=== PATIENT | male | born 1970 | race Caucasian/White ===

== ENCOUNTER 2016-06-22 11:15 | Emergency (ER) | payer BC, MEDICAID, OTHER ==
[~2016-06-22 11:15] MED LIST: ALBU17IN INH; ALBU83IN INH; CYCL5TA PO; KEFL500C OR; LEVA12INH INH; LORTAB PO; MORP10EL PO; MORP15TASA PO; MORP1SOL3 PO; MULTIVIT PO; PROT1TAB2 PO; TOPA25TA10 PO; TRAM50TA2 PO; TYLE500T78 PO; ZANA4TAB PO; ZIPS25CA3 PO; ZOFR20TA PO; [UNRECOGNIZED DRUG - OTHER] PO
--- NOTE | 2016-06-22 12:53 | EDDOCDS ---
Physician Documentation [facility] Name: Galo Reinoso Age: 45 yrs Sex: Male : 1970 Arrival Date: 06/22/2016 Time: 11:15 Bed TR7 Private MD: Zi Sun Disposition: 06/22/16 11:56 Discharged to Home/Self Care. Impression: Strain of muscle and tendon of back wall of thorax, Strain of muscle(s) and tendon(s) of the rotator cuff of left shoulder. - Condition is Stable. - Discharge Instructions: Muscle Strain. - Prescriptions for Valium 5 mg Oral Tablet - take 1 tablet by ORAL route every 8 hours As needed MDD: 3 tabs; 20 tablet. - Medication Reconciliation form. - Follow up: Zi Sun; When: Call to arrange an appointment; Reason: Wound/Symptom Recheck, Recheck today's complaints, Worsening of conditions, Continuance of care. - Problem is an acute exacerbation. - Symptoms are unchanged. Historical: - Allergies: Aminophylline (Anaphylaxis); - Home Meds: 1. albuterol sulfate 90 mcg/actuation Inhl HFAA 2 puffs as needed as needed 2. Xopenex 1.25 mg/3 mL Inhl nebu 3 mL as needed as needed 3. Tylenol 3000mg per day Oral 2 tabs every 6 hours (Last dose: 06/22/2016 08:00) 4. butrans 15 mcg/hr on weekly - PMHx: Asthma; Chronic Back pain; Chronic Neck Pain; GERD; - PSHx: back surgery times 23; Knee Arthroplasty, Left; Knee Arthroplasty, Right; Hip Arthroplasty, Left; Hip Arthroplasty, Right; ACDFI; Carpal Tunnel Repair- Bilateral; CUBITAL TUNNEL REPAIR, BILATERALLY; - Social history: No barriers to communication noted, The patient speaks fluent Azeri, Smoking status: Patient states was never smoker of tobacco. - Family history: Not pertinent. - : The pt / caregiver states he / she is not on anticoagulants. Home medication list is obtained from the patient. - Exposure Risk Screening:: None identified. Vital Signs: 06/22 11:17 BP 132 / 71; Pulse 78; Resp 18; Temp 96.9(O); Pulse Ox 97% on R/A; Weight 117.93 kg / ct3 259.99 lbs (R); Height 5 ft. 6 in. (167.64 cm) (R); Pain 12/16; 11:17 Body Mass Index 41.96 (117.93 kg, 167.64 cm) ct3 MDM: 11:59 Financial registration complete. 12: [facility] Payment Agreement was scanned into [employer] and attached to record. Signatures: Che Lara, Vivek Doyle Patricia MarinelliRN RN kr3 Ricarda Delarosa RN RN gail Zeus Galeana, PA-C PA-C cc10 The chart was reviewed and I authenticate all verbal orders and agree with the evaluation and treatment provided.Corrections: (The following items were deleted from the chart) 11:19 Home Meds: tramadol 50 mg Oral tab as needed; kr3 kr3 11:19 Home Meds: Tylenol 3000mg per day Oral 2 tabs every 6 hours; kr3 kr3 11:19 Home Meds: Zipsor 25 mg oral cap 1 cap three times a day; kr3 kr3 Attachments: 12:22 [facility] Payment Agreement lg MTDD
--- NOTE | 2016-06-22 12:53 | EDDOCDS ---
Nurse's Notes [facility] Name: Galo Reinoso Age: 45 yrs Sex: Male : 1970 Arrival Date: 06/22/2016 Time: 11:15 Bed TR7 Private MD: Zi Sun Diagnosis: Strain of muscle and tendon of back wall of thorax;Strain of muscle(s) and tendon(s) of the rotator cuff of left shoulder Presentation: 06/22 11:19 Presenting complaint: Patient states: lower back started a spasms Tuesday night when he kr3 went to step up on escalator , left shoulder pain and spasms in lower back. Adult Sepsis Screening: The patient does not have new or worsening altered mentation. Patient's respiratory rate is less than 22. Systolic blood pressure is greater than 100. Patient has a qSOFA score of 0- Negative Sepsis Screen. Suicide/Homicide risk assessment- the patient denies having any suicidal and/or homicidal ideations and does not present with any other emotional, behavioral or mental health complaints. Status: Patient is not a service assistant or dependent. Transition of care: patient was not received from another setting of care. 11:19 Acuity: ZULEMA Level 3 kr3 11:19 Method Of Arrival: Walkin/Carried/Asstd kr3 Triage Assessment: 11:19 General: Appears in no apparent distress. Pain: Location: left shopulder pain 8/10 and kr3 low back 6/10. HIV screening NA for this visit Offered previously. Historical: - Allergies: Aminophylline (Anaphylaxis); - Home Meds: 1. albuterol sulfate 90 mcg/actuation Inhl HFAA 2 puffs as needed as needed 2. Xopenex 1.25 mg/3 mL Inhl nebu 3 mL as needed as needed 3. Tylenol 3000mg per day Oral 2 tabs every 6 hours (Last dose: 06/22/2016 08:00) 4. butrans 15 mcg/hr on weekly - PMHx: Asthma; Chronic Back pain; Chronic Neck Pain; GERD; - PSHx: back surgery times 23; Knee Arthroplasty, Left; Knee Arthroplasty, Right; Hip Arthroplasty, Left; Hip Arthroplasty, Right; ACDFI; Carpal Tunnel Repair- Bilateral; CUBITAL TUNNEL REPAIR, BILATERALLY; - Social history: No barriers to communication noted, The patient speaks fluent Serbian, Smoking status: Patient states was never smoker of tobacco. - Family history: Not pertinent. - : The pt / caregiver states he / she is not on anticoagulants. Home medication list is obtained from the patient. - Exposure Risk Screening:: None identified. Screenin:05 Screening information is obtained from the patient. Fall risk: No risks identified. [facility] Assistance ADL's: requires no assistance with activities of daily living. Abuse/DV Screen: The patient / caregiver reports he/she is: not in a situation that causes fear, pain or injury. Nutritional screening: No deficits noted. Advance Directives: There is no active DNR order. home support is adequate. Assessment: 12:05 General: Appears uncomfortable, Behavior is cooperative. Pain: Location: back and right [facility] arm Pain currently is 8 out of 10 on a pain scale. Respiratory: Airway is patent Respiratory effort is even, unlabored, Respiratory pattern is regular, symmetrical. Musculoskeletal: Range of motion limited in left shoulder. Vital Signs: 11:17 BP 132 / 71; Pulse 78; Resp 18; Temp 96.9(O); Pulse Ox 97% on R/A; Weight 117.93 kg ct3 (R); Height 5 ft. 6 in. (167.64 cm) (R); Pain 8/10; 11:17 Body Mass Index 41.96 (117.93 kg, 167.64 cm) ct3 Vitals: 11:17 Log In Time: June 22, 2016 at 11:15. ct3 ED Course: 11:17 Patient visited by Debbi Allen PCA. ct3 11:17 Zi Sun is Private Physician. ct3 11:17 Patient moved to Waiting ct3 11:18 Patient moved to Pre RCE ct3 11:20 Triage Initiated kr3 11:41 Patient moved to Triage 1 ar3 11:46 Zeus Galeana [facility]-C [facility] cc10 11:46 Oneal Santillan MD is Attending Physician. cc10 11:48 Patient visited by Zeus Galeana PA-C. cc10 11:48 Patient visited by Zeus Galeana PA-C. cc10 11:56 Zi Sun is Referral Physician. cc10 12:05 The patient / caregiver is instructed regarding the plan of care and ED course. [facility] 12:05 No IV's were initiated during this patient's visit. No procedures done that require [facility] assistance. 12:07 Patient moved to 7 ar3 12:22 [facility] Payment Agreement was scanned into [employer] and attached to record. Order Results: There are currently no results for this order. Outcome: 11:56 Discharge ordered by Provider. cc10 12:05 Discharge Assessment: Patient awake, alert and oriented x 3. No cognitive and/or [facility] functional deficits noted. Patient verbalized understanding of disposition instructions. patient administered narcotics - no. The following High Risk Discharge criteria are identified: None. Discharged to home ambulatory. Condition: good Condition: stable Condition: improved. Discharge instructions given to patient. No special radiology studies were completed. Property :Personal belongings accompany Pt. 12:51 Patient left the ED. [facility] Signatures: Che Lara, Vivek Reg Patricia Perry RN RN kr3 Jillian Soares, INSOLE BUFFER INSOLE BUFFER ar3 Debbi Allen, INSOLE BUFFER INSOLE BUFFER ct3 Ricarda Delarosa RN RN [facility] Zeus Galeana, PA-C PA-C cc10 Corrections: (The following items were deleted from the chart) 11:22 11:19 Home Meds: tramadol 50 mg Oral tab as needed; kr3 kr3 11:22 11:19 Home Meds: Tylenol 3000mg per day Oral 2 tabs every 6 hours; kr3 kr3 11:22 11:19 Home Meds: Zipsor 25 mg oral cap 1 cap three times a day; kr3 kr3 MTDD
--- NOTE | 2016-06-24 13:53 | EDDOCDS ---
Physician Documentation [facility] Name: Galo Reinoso Age: 45 yrs Sex: Male : 1970 Arrival Date: 06/22/2016 Time: 11:15 Bed TR7 Private MD: Zi Sun Disposition: 06/22/16 11:56 Discharged to Home/Self Care. Impression: Strain of muscle and tendon of back wall of thorax, Strain of muscle(s) and tendon(s) of the rotator cuff of left shoulder. - Condition is Stable. - Discharge Instructions: Muscle Strain. - Prescriptions for Valium 5 mg Oral Tablet - take 1 tablet by ORAL route every 8 hours As needed MDD: 3 tabs; 20 tablet. - Medication Reconciliation form. - Follow up: Zi Sun; When: Call to arrange an appointment; Reason: Wound/Symptom Recheck, Recheck today's complaints, Worsening of conditions, Continuance of care. - Problem is an acute exacerbation. - Symptoms are unchanged. Historical: - Allergies: Aminophylline (Anaphylaxis); - Home Meds: 1. albuterol sulfate 90 mcg/actuation Inhl HFAA 2 puffs as needed as needed 2. Xopenex 1.25 mg/3 mL Inhl nebu 3 mL as needed as needed 3. Tylenol 3000mg per day Oral 2 tabs every 6 hours (Last dose: 06/22/2016 08:00) 4. butrans 15 mcg/hr on weekly - PMHx: Asthma; Chronic Back pain; Chronic Neck Pain; GERD; - PSHx: back surgery times 23; Knee Arthroplasty, Left; Knee Arthroplasty, Right; Hip Arthroplasty, Left; Hip Arthroplasty, Right; ACDFI; Carpal Tunnel Repair- Bilateral; CUBITAL TUNNEL REPAIR, BILATERALLY; - Social history: No barriers to communication noted, The patient speaks fluent Portuguese, Smoking status: Patient states was never smoker of tobacco. - Family history: Not pertinent. - : The pt / caregiver states he / she is not on anticoagulants. Home medication list is obtained from the patient. - Exposure Risk Screening:: None identified. Vital Signs: 06/22 11:17 BP 132 / 71; Pulse 78; Resp 18; Temp 96.9(O); Pulse Ox 97% on R/A; Weight 117.93 kg / ct3 259.99 lbs (R); Height 5 ft. 6 in. (167.64 cm) (R); Pain 12/16; 11:17 Body Mass Index 41.96 (117.93 kg, 167.64 cm) ct3 MDM: 11:59 Financial registration complete. 12: [facility] Payment Agreement was scanned into MEDHOST and attached to record. 06/23 14: T-Sheet-- Draft Copy was scanned into [employer] and attached to record. gb Signatures: Krista Ortega, Reg Reg gb Che Lara, Reg Reg lg Patricia Marinelli,RN RN kr3 Ricarda Delarosa,RN RN [facility] Zeus Galeana, PADarrelC PADarrelC cc10 The chart was reviewed and I authenticate all verbal orders and agree with the evaluation and treatment provided.Corrections: (The following items were deleted from the chart) 06/22 11:22 11:19 Home Meds: tramadol 50 mg Oral tab as needed; kr3 kr3 11:22 11:19 Home Meds: Tylenol 3000mg per day Oral 2 tabs every 6 hours; kr3 kr3 11: 11:19 Home Meds: Zipsor 25 mg oral cap 1 cap three times a day; kr3 kr3 Attachments: 12:22 [facility] Payment Agreement lg 06/23 14:14 T-Sheet-- Draft Copy gb Chart Complete MTDD
--- NOTE | 2016-06-24 13:53 | EDDOCDS ---
Nurse's Notes [facility] Name: Galo Reinoso Age: 45 yrs Sex: Male : 1970 Arrival Date: 06/22/2016 Time: 11:15 Bed TR7 Private MD: Zi Sun Diagnosis: Strain of muscle and tendon of back wall of thorax;Strain of muscle(s) and tendon(s) of the rotator cuff of left shoulder Presentation: 06/22 11:19 Presenting complaint: Patient states: lower back started a spasms Tuesday night when he kr3 went to step up on escalator , left shoulder pain and spasms in lower back. Adult Sepsis Screening: The patient does not have new or worsening altered mentation. Patient's respiratory rate is less than 22. Systolic blood pressure is greater than 100. Patient has a qSOFA score of 0- Negative Sepsis Screen. Suicide/Homicide risk assessment- the patient denies having any suicidal and/or homicidal ideations and does not present with any other emotional, behavioral or mental health complaints. Status: Patient is not a senior manager creative services or dependent. Transition of care: patient was not received from another setting of care. 11:19 Acuity: ZULEMA Level 3 kr3 11:19 Method Of Arrival: Walkin/Carried/Asstd kr3 Triage Assessment: 11:19 General: Appears in no apparent distress. Pain: Location: left shopulder pain 8/10 and kr3 low back 6/10. HIV screening NA for this visit Offered previously. Historical: - Allergies: Aminophylline (Anaphylaxis); - Home Meds: 1. albuterol sulfate 90 mcg/actuation Inhl HFAA 2 puffs as needed as needed 2. Xopenex 1.25 mg/3 mL Inhl nebu 3 mL as needed as needed 3. Tylenol 3000mg per day Oral 2 tabs every 6 hours (Last dose: 06/22/2016 08:00) 4. butrans 15 mcg/hr on weekly - PMHx: Asthma; Chronic Back pain; Chronic Neck Pain; GERD; - PSHx: back surgery times 23; Knee Arthroplasty, Left; Knee Arthroplasty, Right; Hip Arthroplasty, Left; Hip Arthroplasty, Right; ACDFI; Carpal Tunnel Repair- Bilateral; CUBITAL TUNNEL REPAIR, BILATERALLY; - Social history: No barriers to communication noted, The patient speaks fluent Romansh, Smoking status: Patient states was never smoker of tobacco. - Family history: Not pertinent. - : The pt / caregiver states he / she is not on anticoagulants. Home medication list is obtained from the patient. - Exposure Risk Screening:: None identified. Screenin:05 Screening information is obtained from the patient. Fall risk: No risks identified. [facility] Assistance ADL's: requires no assistance with activities of daily living. Abuse/DV Screen: The patient / caregiver reports he/she is: not in a situation that causes fear, pain or injury. Nutritional screening: No deficits noted. Advance Directives: There is no active DNR order. home support is adequate. Assessment: 12:05 General: Appears uncomfortable, Behavior is cooperative. Pain: Location: back and right [facility] arm Pain currently is 8 out of 10 on a pain scale. Respiratory: Airway is patent Respiratory effort is even, unlabored, Respiratory pattern is regular, symmetrical. Musculoskeletal: Range of motion limited in left shoulder. Vital Signs: 11:17 BP 132 / 71; Pulse 78; Resp 18; Temp 96.9(O); Pulse Ox 97% on R/A; Weight 117.93 kg ct3 (R); Height 5 ft. 6 in. (167.64 cm) (R); Pain 8/10; 11:17 Body Mass Index 41.96 (117.93 kg, 167.64 cm) ct3 Vitals: 11:17 Log In Time: June 22, 2016 at 11:15. ct3 ED Course: 11:17 Patient visited by Debbi Allen PCA. ct3 11:17 Zi Sun is Private Physician. ct3 11:17 Patient moved to Waiting ct3 11:18 Patient moved to Pre RCE ct3 11:20 Triage Initiated kr3 11:41 Patient moved to Triage 1 ar3 11:46 [facility]aleana [facility] cc[facility] 11:46 Oneal Santillan MD is Attending Physician. cc10 11:48 Patient visited by Zeus Galeana PA-C. cc10 11:48 Patient visited by Zeus Galeana PA-C. cc10 11:56 Zi Sun is Referral Physician. cc10 12:05 The patient / caregiver is instructed regarding the plan of care and ED course. [facility] 12:05 No IV's were initiated during this patient's visit. No procedures done that require [facility] assistance. 12:07 Patient moved to TR7 ar3 12:22 [facility] Payment Agreement was scanned into [employer] and attached to record. 06/23 14:14 T-Sheet-- Draft Copy was scanned into panpan and attached to record. gb Order Results: There are currently no results for this order. Outcome: 06/22 11:56 Discharge ordered by Provider. cc10 12:05 Discharge Assessment: Patient awake, alert and oriented x 3. No cognitive and/or [facility] functional deficits noted. Patient verbalized understanding of disposition instructions. patient administered narcotics - no. The following High Risk Discharge criteria are identified: None. Discharged to home ambulatory. Condition: good Condition: stable Condition: improved. Discharge instructions given to patient. No special radiology studies were completed. Property :Personal belongings accompany Pt. 12:51 Patient left the ED. [facility] Signatures: Krista Ortega, Reg Reg gb Che Lara, Reg Reg lg Patricia Marinelli,RN RN kr Jillian Soares, TOOLMAKER HELPER TOOLMAKER HELPER ar3 Debbi Allen, TOOLMAKER HELPER TOOLMAKER HELPER ct3 Ricarda Delarosa RN RN [facility] Zeus Galeana, PA-C PADarrelC cc10 Corrections: (The following items were deleted from the chart) 11:22 11:19 Home Meds: tramadol 50 mg Oral tab as needed; kr3 kr3 11:22 11:19 Home Meds: Tylenol 3000mg per day Oral 2 tabs every 6 hours; kr3 kr3 11:22 11:19 Home Meds: Zipsor 25 mg oral cap 1 cap three times a day; kr3 kr3 Chart Complete MTDD
--- NOTE | 2016-06-24 13:53 | EDDOCDS ---
Physician Documentation [facility] Name: Galo Reinoso Age: 45 yrs Sex: Male : 1970 Arrival Date: 06/22/2016 Time: 11:15 Bed TR7 Private MD: Zi Sun Disposition: 06/22/16 11:56 Discharged to Home/Self Care. Impression: Strain of muscle and tendon of back wall of thorax, Strain of muscle(s) and tendon(s) of the rotator cuff of left shoulder. - Condition is Stable. - Discharge Instructions: Muscle Strain. - Prescriptions for Valium 5 mg Oral Tablet - take 1 tablet by ORAL route every 8 hours As needed MDD: 3 tabs; 20 tablet. - Medication Reconciliation form. - Follow up: Zi Sun; When: Call to arrange an appointment; Reason: Wound/Symptom Recheck, Recheck today's complaints, Worsening of conditions, Continuance of care. - Problem is an acute exacerbation. - Symptoms are unchanged. Historical: - Allergies: Aminophylline (Anaphylaxis); - Home Meds: 1. albuterol sulfate 90 mcg/actuation Inhl HFAA 2 puffs as needed as needed 2. Xopenex 1.25 mg/3 mL Inhl nebu 3 mL as needed as needed 3. Tylenol 3000mg per day Oral 2 tabs every 6 hours (Last dose: 06/22/2016 08:00) 4. butrans 15 mcg/hr on weekly - PMHx: Asthma; Chronic Back pain; Chronic Neck Pain; GERD; - PSHx: back surgery times 23; Knee Arthroplasty, Left; Knee Arthroplasty, Right; Hip Arthroplasty, Left; Hip Arthroplasty, Right; ACDFI; Carpal Tunnel Repair- Bilateral; CUBITAL TUNNEL REPAIR, BILATERALLY; - Social history: No barriers to communication noted, The patient speaks fluent Wolof, Smoking status: Patient states was never smoker of tobacco. - Family history: Not pertinent. - : The pt / caregiver states he / she is not on anticoagulants. Home medication list is obtained from the patient. - Exposure Risk Screening:: None identified. Vital Signs: 06/22 11:17 BP 132 / 71; Pulse 78; Resp 18; Temp 96.9(O); Pulse Ox 97% on R/A; Weight 117.93 kg / ct3 259.99 lbs (R); Height 5 ft. 6 in. (167.64 cm) (R); Pain 12/16; 11:17 Body Mass Index 41.96 (117.93 kg, 167.64 cm) ct3 MDM: 11:59 Financial registration complete. 12: [facility] Payment Agreement was scanned into MEDHOST and attached to record. 06/23 14: T-Sheet-- Draft Copy was scanned into [employer] and attached to record. gb Signatures: Krista Ortega, Reg Reg gb Che Lara, Reg Reg lg Patricia Marinelli,RN RN kr3 Ricarda Delarosa,RN RN [facility] Zeus Galeana, PADarrelC PADarrelC cc10 The chart was reviewed and I authenticate all verbal orders and agree with the evaluation and treatment provided.Corrections: (The following items were deleted from the chart) 06/22 11:22 11:19 Home Meds: tramadol 50 mg Oral tab as needed; kr3 kr3 11:22 11:19 Home Meds: Tylenol 3000mg per day Oral 2 tabs every 6 hours; kr3 kr3 11: 11:19 Home Meds: Zipsor 25 mg oral cap 1 cap three times a day; kr3 kr3 Attachments: 12:22 [facility] Payment Agreement lg 06/23 14:14 T-Sheet-- Draft Copy gb Chart Complete MTDD
== END 2016-06-22 12:51 | disposition home or self-care (01) ==
LOC: M ED 11:15
DX: S39.012A Strain of muscle, fascia and tendon of lower back, initial encounter (principal); M25.512 Pain in left shoulder; X58.XXXA Exposure to other specified factors, initial encounter; Y92.89 Other specified places as the place of occurrence of the external cause; Y93.89 Activity, other specified; Y99.8 Other external cause status; G89.29 Other chronic pain; J45.909 Unspecified asthma, uncomplicated; K21.9 Gastro-esophageal reflux disease without esophagitis; Z79.891 Long term (current) use of opiate analgesic

== ENCOUNTER → 2016-06-25 | Outpatient (CLI) | payer OTHER ==
--- NOTE | 2016-06-25 13:12 | REP ---
Clinical: Left shoulder pain. Technique: Internal rotation, external rotation, and Y view. Findings: Subtle cortical irregularity and widening to the acromioclavicular joint is appreciated. The glenohumeral joint appears intact. The subacromial space is normal. Impression: Widening and mild degenerative changes involving the acromioclavicular joint. Signed by Sagar Holt MD 06/25/2016 01:03 P
== END ==
LOC: M WUC 12:12
PROVIDERS: ATTEND Nurse Practitioner Family
DX: M19.012 Primary osteoarthritis, left shoulder (principal)

== ENCOUNTER → 2017-01-05 | Outpatient (CLI) | payer MEDICAID, OTHER ==
[~2017-01-05] MED LIST changes: -CYCL5TA PO; +CYCL5TAB PO; -MORP10EL PO; +MORP10SO PO; +TOPA1TAB PO; -TOPA25TA10 PO
--- NOTE | 2017-01-05 21:07 | REP ---
Clinical: Left shoulder pain. Technique: Internal rotation, external rotation, and Y view of the left shoulder. Comparison: A 17 17. Findings: Cortical irregularity and spurring at the distal aspect of the clavicle along with stable acromioclavicular joint widening appears unchanged. The glenohumeral joint appears intact and normal. No periarticular calcifications are appreciated. Subacromial space is normal. Surrounding soft tissues are unremarkable. Impression: Chronic stable changes involving the acromioclavicular joint including cortical irregularity and moderate widening. Signed by Sagar Holt MD 01/05/2017 08:59 P
== END ==
LOC: M RAD 16:18
PROVIDERS: ATTEND Nurse Practitioner Family
DX: M25.512 Pain in left shoulder (principal)

== ENCOUNTER 2017-02-07 20:07 | Emergency (ER) | payer MEDICAID, OTHER ==
[~2017-02-07] VITALS: Ht 167.6 cm; Wt 107.3 kg
--- NOTE | 2017-02-07 22:20 | REPUSA ---
MRI cervical spine without contrast Clinical statement: Pain. Technique: Multiecho multiplanar MRI images of the cervical spine were obtained without administratio n of contrast. Comparison: 02/23/2016. Findings: The cervical vertebral bodies demonstrate surgical fusion anteriorly from C4 through C6, an d posteriorly from C4 through T2. This is stable since the prior study. No fractures or dislocations are demonstrated. Normal heterogeneous bone marrow signal is noted. No osseous tumors are seen. The v isualized portions of the posterior fossa are unremarkable. The cervical cranial junction is intact. The intervertebral disc spaces and heights are well-maintained. The facet joints are intact without e vidence of subluxation. The cervical spinal cord demonstrates normal signal and contour. The surround ing soft tissues are within normal limits. At the cervical vertebral levels, there is no evidence of disc herniation or protrusion. There is no central canal stenosis. The neural foramina are patent bilaterally. Impression: No evidence of central canal stenosis or neural foraminal narrowing. Surgical fusion colin ges are stable and intact. No other acute findings.
[2017-02-07 23:13] VITALS: BP 123/64
[2017-02-07] MEDS ORDERED: NORCO 5/325MG TABLET (BULK FOR ED) PO ONE (23:15)
[2017-02-07] MEDS ORDERED: KETOROLAC 30 MG/ML VIAL (J1885) IV ONE (23:15)
== END 2017-02-07 23:34 | disposition home or self-care (01) ==
LOC: M ED 20:07
DX: M54.12 Radiculopathy, cervical region (principal); J45.909 Unspecified asthma, uncomplicated; G47.30 Sleep apnea, unspecified; F41.9 Anxiety disorder, unspecified; F33.9 Major depressive disorder, recurrent, unspecified; Z88.5 Allergy status to narcotic agent; Z88.8 Allergy status to other drugs, medicaments and biological substances; Z91.040 Latex allergy status; Z98.890 Other specified postprocedural states; Z87.820 Personal history of traumatic brain injury; Z87.442 Personal history of urinary calculi
CPT/HCPCS: 72141; 96374; 96375; 99283; J1885; J3360

== ENCOUNTER 2017-05-04 14:33 | Emergency (ER) | payer OTHER ==
[2017-05-04] MEDS: ONDANSETRON 4MG/2ML VIAL (J2405) IV (17:30)
[2017-05-04 18:17] LABS: BASO % 0.1 % (0.0-1.0); EOS # 0.1 10^3/uL (0.0-0.50); EOS % 0.8 % (0.0-3.0); IMMATURE GRANULOCYTE % 0.3 % (0-0); LYMPH # 1.7 10^3/uL (1.5-4.5); LYMPH % 23.9 % (24.0-44.0); MEAN CORPUSCULAR HEMOGLOBIN 29.7 pg (27.0-33.0); MEAN CORPUSCULAR HGB CONC 33.8 g/dl (32.0-36.5); MEAN CORPUSCULAR VOLUME 87.8 fl (80.0-96.0); MONO # 0.7 10^3/uL (0.0-0.8); NEUTROPHILS # 4.7 10^3/uL (1.8-7.7); NEUTROPHILS % 64.9 % (36.0-66.0); PLATELET COUNT, AUTOMATED 203 10^3/uL (150-450); WHITE BLOOD COUNT 7.3 10^3/uL (4.0-10.0)
[2017-05-04 18:46] LABS: ALBUMIN 3.7 GM/DL (3.2-5.2); ALKALINE PHOSPHATASE 78 U/L (45-117); ALT/SGPT 21 U/L (12-78); ANION GAP 6 MEQ/L (8-16); AST/SGOT 23 U/L (7-37); BLOOD UREA NITROGEN 14 MG/DL (7-18); CALCIUM LEVEL 8.9 MG/DL (8.5-10.1); CARBON DIOXIDE LEVEL 30 MEQ/L (21-32); CHLORIDE LEVEL 102 MEQ/L (98-107); CREATININE FOR GFR 0.97 MG/DL (0.70-1.30); GLOMERULAR FILTRATION RATE > 60.0 (>60); GLUCOSE, FASTING 87 MG/DL (70-105); POTASSIUM SERUM 3.8 MEQ/L (3.5-5.1); SODIUM LEVEL 138 MEQ/L (136-145); TOTAL PROTEIN 7.4 GM/DL (6.4-8.2)
== END 2017-05-04 19:14 | disposition home or self-care (01) ==
LOC: M ED 14:33
DX: R19.7 Diarrhea, unspecified (principal); R11.0 Nausea; R10.9 Unspecified abdominal pain; M54.5 Low back pain; F41.9 Anxiety disorder, unspecified; K76.0 Fatty (change of) liver, not elsewhere classified; N28.81 Hypertrophy of kidney; Z79.899 Other long term (current) drug therapy; Z88.8 Allergy status to other drugs, medicaments and biological substances; Z88.5 Allergy status to narcotic agent; Z91.040 Latex allergy status
CPT/HCPCS: J2405

== ENCOUNTER 2017-06-02 11:16 | Emergency (ER) | payer OTHER ==
[2017-06-02] MEDS: HYDROmorphone HCL 1 MG/ML SYRINGE (J1170) IV ×2 (12:03→14:15)
[2017-06-02] MEDS: ONDANSETRON 4MG/2ML VIAL (J2405) IV (12:03)
[2017-06-02 12:06] LABS: BASO % 0.5 % (0.0-1.0); EOS # 0.1 10^3/uL (0.0-0.50); HEMATOCRIT 44.1 % (42.0-52.0); IMMATURE GRANULOCYTE % 0.2 % (0-0); LYMPH # 1.7 10^3/uL (1.5-4.5); LYMPH % 38.2 % (24.0-44.0); MEAN CORPUSCULAR HEMOGLOBIN 29.2 pg (27.0-33.0); MONO # 0.4 10^3/uL (0.0-0.8); MONO % 8.8 % (0.0-5.0); NEUTROPHILS # 2.1 10^3/uL (1.8-7.7); NEUTROPHILS % 49.3 % (36.0-66.0); PLATELET COUNT, AUTOMATED 191 10^3/uL (150-450); RED BLOOD COUNT 5.13 10^6/uL (4.30-6.10); RED CELL DISTRIBUTION WIDTH 11.9 % (11.5-14.5); WHITE BLOOD COUNT 4.3 10^3/uL (4.0-10.0)
[2017-06-02] MEDS: diazePAM 5 MG TAB PO (12:15)
[2017-06-02 12:37] LABS: ANION GAP 6 MEQ/L (8-16); BLOOD UREA NITROGEN 13 MG/DL (7-18); CALCIUM LEVEL 9.1 MG/DL (8.5-10.1); CARBON DIOXIDE LEVEL 30 MEQ/L (21-32); CHLORIDE LEVEL 105 MEQ/L (98-107); GLOMERULAR FILTRATION RATE > 60.0 (>60); GLUCOSE, FASTING 93 MG/DL (70-100); POTASSIUM SERUM 4.2 MEQ/L (3.5-5.1); SODIUM LEVEL 141 MEQ/L (136-145)
[2017-06-02] MEDS: KETOROLAC 30 MG/ML VIAL (J1885) IV (17:55)
[2017-06-02] MEDS: METHOCARBAMOL 500 MG TAB PO (17:59)
== END 2017-06-02 19:12 | disposition home or self-care (01) ==
LOC: M ED 11:16
DX: M51.17 Intervertebral disc disorders with radiculopathy, lumbosacral region (principal); M79.604 Pain in right leg; M79.605 Pain in left leg; R32 Unspecified urinary incontinence; R20.0 Anesthesia of skin; Z91.81 History of falling; J45.909 Unspecified asthma, uncomplicated; G47.33 Obstructive sleep apnea (adult) (pediatric); K21.9 Gastro-esophageal reflux disease without esophagitis; Z87.442 Personal history of urinary calculi; Z98.1 Arthrodesis status; Z91.040 Latex allergy status; Z88.8 Allergy status to other drugs, medicaments and biological substances; Z79.899 Other long term (current) drug therapy
CPT/HCPCS: J1170

== ENCOUNTER → 2017-07-25 | Outpatient (CLI) | payer OTHER | LOC: M LRY 08:44 | DX: N31.9 Neuromuscular dysfunction of bladder, unspecified (principal) | CPT/HCPCS: 76857 ==

== ENCOUNTER 2017-08-29 08:22 | Emergency (ER) | payer OTHER ==
[2017-08-29] MEDS: TETRACAINE 0.5% OPHTH SOLN 4ML OD (08:45)
[2017-08-29] MEDS: FLUORESCEIN OPHTH 1 MG STRIP OD (08:45)
== END 2017-08-29 09:05 | disposition home or self-care (01) ==
LOC: M ED 08:22
DX: S05.01XA Injury of conjunctiva and corneal abrasion without foreign body, right eye, initial encounter (principal); W22.8XXA Striking against or struck by other objects, initial encounter; Y92.89 Other specified places as the place of occurrence of the external cause; J45.909 Unspecified asthma, uncomplicated; K21.9 Gastro-esophageal reflux disease without esophagitis; F41.9 Anxiety disorder, unspecified; Z88.8 Allergy status to other drugs, medicaments and biological substances; Z88.5 Allergy status to narcotic agent; Z91.040 Latex allergy status
CPT/HCPCS: 99283

== ENCOUNTER → 2018-04-19 | Outpatient (REF) | payer MEDICARE, MEDICAID ==
[~2018-04-19] MED LIST changes: +ERYTOIN8 OD; +MEDR4PAK PO; +ROBA500T PO; +ZANT300T9 PO; -ZOFR20TA PO; +ZOFR4TAB14 PO; +ZOFR4TAB16 PO
[2018-04-21 00:06] LABS: Lyme Disease IgG/IgM Antibodie <0.91 ISR (0.00-0.90); Lyme Disease IgM Ab Quantitati <0.80 index (0.00-0.79)
== END ==
LOC: M LAB REF 12:17
PROVIDERS: ATTEND Nurse Practitioner Family
DX: R53.83 Other fatigue (principal)

== ENCOUNTER 2018-06-10 20:44 | Emergency (ER) | payer MEDICARE, MEDICAID ==
[~2018-06-10] VITALS: Ht 167.6 cm; Wt 118.2 kg
[2018-06-10] MEDS ORDERED: IBUP200C25 PO (20:59)
[2018-06-10] MEDS ORDERED: NORCO, ANEXSIA 5/325MG TABLET (HYDROcodone/ACETAMINOPHEN) PO ONE (23:30)
[2018-06-10] MEDS ORDERED: NAPR-50 PO (23:43)
[2018-06-10] MEDS ORDERED: CYCL10TA PO (23:43)
[2018-06-10 23:54] VITALS: BP 132/68
--- NOTE | 2018-06-11 08:03 | REP ---
Clinical: Fall with left hip pain Technique: Frontal view of the pelvis with neutral and frog lateral views of the left hip. Findings: The patient is noted to be status post bilateral hip replacement. Osseous structures and joint spaces are intact and without acute fracture or dislocation. The surrounding soft tissues are grossly unremarkable. Impression: No acute fracture or dislocation Electronically Signed by Sagar Holt MD 06/11/2018 07:55 A
--- NOTE | 2018-06-11 08:11 | REP ---
Clinical: Trauma. Fall. Technique: AP, lateral, flexion/extension, bilateral oblique, and swimmer's views of the cervical spine. Findings: The patient is noted to be status post fixation and laminectomy. Alignment and lordosis is maintained. Degenerative disc osteophyte at the C3-4 level noted. No acute fracture / compression injury or subluxation identified. C1-C2 articulation and odontoid process appear normal. Neural foramen appear patent. Impression: No acute fracture / compression injury or subluxation. Electronically Signed by Sagar Holt MD 06/11/2018 08:03 A
--- NOTE | 2018-06-11 08:22 | REP ---
Clinical: Trauma. Technique: Cross-table lateral view of the hip (left). Findings: The patient is noted to be status post bilateral hip replacement. There is essentially complete superimposition of the bilateral hip joints which appear intact without evidence for dislocation. Impression: No evidence for dislocation. Electronically Signed by Sagar Holt MD 06/11/2018 08:14 A
== END 2018-06-10 23:59 | disposition home or self-care (01) ==
LOC: M ED 20:44
DX: S16.1XXA Strain of muscle, fascia and tendon at neck level, initial encounter (principal); S76.012A Strain of muscle, fascia and tendon of left hip, initial encounter; T14.8XXA Other injury of unspecified body region, initial encounter; W01.0XXA Fall on same level from slipping, tripping and stumbling without subsequent striking against object, initial encounter; Y92.410 Unspecified street and highway as the place of occurrence of the external cause

== ENCOUNTER 2018-07-03 14:22 | Outpatient (RCR) | payer MEDICARE, MEDICAID ==
[~2018-07-03 14:22] MED LIST changes: +CYCL10TA PO; +IBUP200C25 PO; +NAPR-50 PO
== END 2018-07-06 ==
LOC: M PT 14:22
DX: Z47.89 Encounter for other orthopedic aftercare (principal); M54.16 Radiculopathy, lumbar region

== ENCOUNTER 2018-08-04 10:18 | Emergency (ER) | payer MEDICARE, MEDICAID ==
[~2018-08-04] VITALS: Ht 167.6 cm; Wt 125.9 kg
[~2018-08-04 10:18] MED LIST changes: -NAPR-50 PO; +NAPR-837 PO
[2018-08-04] MEDS ORDERED: NS 1,000 ML IV ONE (11:30)
[2018-08-04 12:09] LABS: BASO % 0.3 % (0.0-1.0); EOS # 0.2 10^3/uL (0.0-0.50); EOS % 3.8 % (0.0-3.0); HEMATOCRIT 45.2 % (42.0-52.0); HEMOGLOBIN 15.4 g/dl (13.5-17.5); LYMPH # 2.2 10^3/uL (1.5-4.5); LYMPH % 38.1 % (24.0-44.0); MEAN CORPUSCULAR HEMOGLOBIN 29.4 pg (27.0-33.0); MEAN CORPUSCULAR HGB CONC 34.1 g/dl (32.0-36.5); MEAN CORPUSCULAR VOLUME 86.3 fl (80.0-96.0); MONO # 0.5 10^3/uL (0.0-0.8); MONO % 7.8 % (0.0-5.0); NEUTROPHILS # 2.9 10^3/uL (1.8-7.7); NEUTROPHILS % 49.8 % (36.0-66.0); PLATELET COUNT, AUTOMATED 254 10^3/uL (150-450); RED BLOOD COUNT 5.24 10^6/uL (4.30-6.10); WHITE BLOOD COUNT 5.8 10^3/uL (4.0-10.0)
--- NOTE | 2018-08-04 12:29 | REP ---
CHEST, TWO VIEWS: Two views of the chest are performed and compared to multiple prior exams dating back to 09/09/2014. There is no acute infiltrate or pulmonary edema. The heart is not enlarged. Mediastinal silhouette is unchanged. Multiple metallic screws and plates are seen in the cervical spine region. There are mild degenerative changes of the spine. IMPRESSION: No acute pulmonary disease. Electronically Signed by Taiwo Butterfield MD 08/04/2018 03:36 P
[2018-08-04 12:44] LABS: ALBUMIN 4.1 GM/DL (3.2-5.2); ALT/SGPT 24 U/L (12-78); AMYLASE 39 U/L (25-115); BILIRUBIN,DIRECT < 0.1 MG/DL (0.0-0.2); BILIRUBIN,TOTAL 0.5 MG/DL (0.2-1.0); BLOOD UREA NITROGEN 11 MG/DL (7-18); CALCIUM LEVEL 9.4 MG/DL (8.5-10.1); CARBON DIOXIDE LEVEL 29 MEQ/L (21-32); CHLORIDE LEVEL 105 MEQ/L (98-107); CPK CREATINE PHOSPHOKINASE 65 U/L (39-308); GLOMERULAR FILTRATION RATE > 60.0 (>60); GLUCOSE, FASTING 94 MG/DL (70-100); LIPASE 118 U/L (73-393); MB/CK RELATIVE INDEX 2.77 (< OR =4); NT-PRO BNP 21 PG/ML (<125); POTASSIUM SERUM 4.5 MEQ/L (3.5-5.1); SODIUM LEVEL 141 MEQ/L (136-145); TOTAL PROTEIN 7.4 GM/DL (6.4-8.2); TROPONIN I < 0.02 NG/ML (< 0.10)
[2018-08-04] MEDS ORDERED: ISOVUE-370 76% 125ML VIAL (Q9967 PER ML) As Ordered ONE (12:52)
--- NOTE | 2018-08-04 14:07 | REP ---
CT ABDOMEN AND PELVIS WITH IV BUT WITHOUT ORAL CONTRAST: HISTORY: Abdominal distension. Pain. Drainage from the umbilicus. Comparison CT study is from January 02, 2012. 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 Bowel gas pattern is normal. The lung bases are free of infiltrate. There is a granulomatous 4 mm nodule in the right lower lobe which is visible on 2012 prior study and unchanged. Lung bases are otherwise clear. The liver and the spleen are normal in size, homogeneous in texture. The gallbladder is unremarkable. There is a very small sliding-type hiatal hernia. No adrenal lesion is seen. No pancreatic mass or cyst is seen. Kidneys enhance symmetrically and are morphologically intact. Small and large intestinal bowel loops are normal in the abdomen and pelvis. No obstructive lesion is seen. A normal appendix is noted. There is spray artifact across the pelvis from the hip prosthetic components interfering with visualization of the lower pelvic structures. There are dystrophic calcifications visible in the prostate. The patient is status post lumbosacral spine fusion dorsally. No other significant bony abnormality is seen. No umbilical or periumbilical lesion is appreciated. A tiny umbilical hernia transmitting abdominal fat is seen. IMPRESSION: No acute abdominal or pelvic abnormality. Tiny umbilical hernia. Electronically Signed by Higinio Roe MD 08/04/2018 02:37 P
[2018-08-04] MEDS ORDERED: MUPI2OI TOP (14:14)
[2018-08-04 14:42] VITALS: BP 137/72
--- NOTE | 2018-08-04 19:40 | ECGEPIP ---
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
== END 2018-08-04 14:38 | disposition home or self-care (01) ==
LOC: M ED 10:18
DX: K42.9 Umbilical hernia without obstruction or gangrene (principal); L08.9 Local infection of the skin and subcutaneous tissue, unspecified; R00.1 Bradycardia, unspecified; G43.909 Migraine, unspecified, not intractable, without status migrainosus; R07.9 Chest pain, unspecified; G47.30 Sleep apnea, unspecified; K21.9 Gastro-esophageal reflux disease without esophagitis; F41.9 Anxiety disorder, unspecified; M54.9 Dorsalgia, unspecified; Z87.442 Personal history of urinary calculi; Z87.01 Personal history of pneumonia (recurrent); Z88.8 Allergy status to other drugs, medicaments and biological substances
CPT/HCPCS: 71046; 74177; 80048; 80076; 81001; 82150; 82550; 82553; 83690; 83880; 84484; 85025; 93005; 99284; Q9967

== ENCOUNTER → 2018-09-04 | Outpatient (CLI) | payer MEDICARE, MEDICAID ==
[~2018-09-04] MED LIST changes: +MUPI2OI TOP
--- NOTE | 2018-09-06 09:30 | REP ---
Examination Requested: Upper G.I. Series With KUB Reason For Exam: Abdominal distension Upper GI Air Contrast The procedure was performed by NABIL Chaudhary, under the direct supervision of Dr. Butterfield. The images were reviewed with Dr. Butterfield. The marketing segment manager film shows normal organomegaly or pathological masses. The intestinal gas pattern appears normal. Bilateral hip replacements are visualized. Liquid barium and gas producing crystals were given tissue in the erect position as well as liquid barium in the prone position in order to perform a double contrast upper GI examination. The oral and pharyngeal stages of deglutition were unremarkable. Esophageal transport is efficient and there is no esophagitis, stricture, or mucosal ring noted. There there is no evidence of a hiatal hernia. No gastroesophageal reflux was appreciated throughout the course of the exam. The stomach duron are normally outlined. The rugal folds are smooth and regular. There is no gastritis, neoplasm, ulcer disease noted. The duodenal duron are normally outlined. The mucosal folds are smooth and regular. There is no duodenitis, peptic ulcer disease, or neoplasm noted. The visualized portion of the proximal small bowel appears normal in course and caliber. The barium column was followed through the small bowel to the level of the terminal ileum. Small bowel transit time was approximately 120 minutes. During fluoroscopy, gentle palpation shows all loops are freely mobile and pliable. There are no fixed dilated loops. The small bowel mucosal pattern is normal in course and caliber. There is no transition to suggest a partial small-bowel obstruction. Spot filming of the terminal ileum shows it to be unremarkable. Impression; 1. Unremarkable upper GI with small bowel follow-through. 2.9 minutes of fluoroscopy time was utilized for this procedure. Reviewed by NABIL Bradford 09/05/2018 09:38 A Electronically Signed by Taiwo Butterfield MD 09/06/2018 09:22 A
== END ==
LOC: M RAD 08:36
PROVIDERS: ATTEND Surgery
DX: R14.0 Abdominal distension (gaseous) (principal); Z96.643 Presence of artificial hip joint, bilateral

== ENCOUNTER → 2018-11-14 | Outpatient (REF) | payer MEDICARE, MEDICAID ==
[2018-11-14 13:31] LABS: AMORPHOUS SEDIMENT SMALL (NEGATIVE); BACTERIA, URINE AUTO NEGATIVE (NEGATIVE); MUCUS, URINE SMALL (NEGATIVE); RBC, URINE AUTO 0 /HPF (0-3); SQUAMOUS EPITHELIAL CELL UR AU 0 /HPF (0-6); WBC, URINE AUTO 0 /HPF (0-3)
== END ==
LOC: M LAB REF 12:32
PROVIDERS: ATTEND Nurse Practitioner Adult Health
DX: R31.9 Hematuria, unspecified (principal)

== ENCOUNTER 2018-12-05 16:17 | Emergency (ER) | payer MEDICARE, MEDICAID ==
[~2018-12-05] VITALS: Ht 167.6 cm; Wt 120.0 kg
[2018-12-05 18:07] LABS: HEMATOCRIT 46.2 % (42.0-52.0); HEMOGLOBIN 15.2 g/dl (13.5-17.5); MEAN CORPUSCULAR HEMOGLOBIN 29.4 pg (27.0-33.0); MEAN CORPUSCULAR HGB CONC 32.9 g/dl (32.0-36.5); MEAN CORPUSCULAR VOLUME 89.4 fl (80.0-96.0); PLATELET COUNT, AUTOMATED 230 10^3/uL (150-450); RED BLOOD COUNT 5.17 10^6/uL (4.30-6.10); WHITE BLOOD COUNT 5.8 10^3/uL (4.0-10.0)
[2018-12-05 18:29] LABS: BLOOD UREA NITROGEN 13 MG/DL (7-18); CALCIUM LEVEL 9.3 MG/DL (8.5-10.1); CARBON DIOXIDE LEVEL 31 MEQ/L (21-32); CHLORIDE LEVEL 105 MEQ/L (98-107); CREATININE FOR GFR 0.85 MG/DL (0.70-1.30); GLOMERULAR FILTRATION RATE > 60.0 (>60); GLUCOSE, FASTING 91 MG/DL (70-100); POTASSIUM SERUM 4.1 MEQ/L (3.5-5.1); SODIUM LEVEL 140 MEQ/L (136-145)
[2018-12-05] MEDS ORDERED: ISOVUE-370 76% 100ML VIAL (Q9967) As Ordered ONE (19:08)
[2018-12-05 20:12] VITALS: BP 130/82
--- NOTE | 2018-12-05 20:25 | REPVR ---
EXAM: US Duplex Right Lower Extremity Veins, Limited EXAM DATE/TIME: 12/05/2018 7:33 PM CLINICAL HISTORY: 48 years old, male; Pain; Leg, lower; Right; Prior surgery; Surgery date: 6+ months; Surgery type: Hip replacement; Additional info: Leg swelling TECHNIQUE: Imaging protocol: Real-time Duplex ultrasound of the Right Lower Extremity with 2-D weathers scale, color Doppler flow and spectral waveform analysis with image documentation. Limited exam was focused on the right lower extremity veins. COMPARISON: No relevant prior studies available. FINDINGS: Right deep veins: Unremarkable. The common femoral, femoral, proximal profunda femoral and popliteal veins are patent without thrombus. Normal Doppler waveforms. Normal compressibility and/or augmentation response. Right superficial veins: Unremarkable. Saphenofemoral junction is patent without thrombus. Soft tissues: Unremarkable. IMPRESSION: No acute findings. No evidence of deep vein thrombosis. Electronically signed by: Kathleen Hernandez On 12/05/2018 20:25:24 PM
--- NOTE | 2018-12-05 20:43 | REPVR ---
EXAM: CT Angiography Chest With Contrast EXAM DATE/TIME: 12/05/2018 7:12 PM CLINICAL HISTORY: 48 years old, male; Chest pain; Additional info: Shortness of breath, rule out pe TECHNIQUE: Imaging protocol: Axial computed tomographic angiography images of the chest with intravenous contrast using CT angiography protocol. Coronal and sagittal reformatted images were created and reviewed. 3D rendering: MIP reconstructed images were created and reviewed. Radiation optimization: All CT scans at this facility use at least one of these dose optimization techniques: automated exposure control; mA and/or kV adjustment per patient size (includes targeted exams where dose is matched to clinical indication); or iterative reconstruction. Contrast material: ISOVUE 370;Contrast volume: 75 ml;Contrast route: IV; COMPARISON: CT ANGIO CHEST 07/30/2015 11:35 AM FINDINGS: Pulmonary arteries: Normal. No pulmonary emboli. Aorta: Unremarkable. No aortic aneurysm. No aortic dissection. Lungs: Unremarkable. No consolidation. No masses. Pleural space: Unremarkable. No pneumothorax. No pleural effusion. Heart: Unremarkable. No cardiomegaly. No pericardial effusion. Mediastinum: A 1.8 x 0.9 cm lobulated soft tissue lesion in the anterior mediastinum is unchanged. This is likely a lymph node. Lymph nodes: Unremarkable. No enlarged lymph nodes. Bones/joints: There is multilevel thoracic disc space narrowing and endplate osteophytosis. Soft tissues: Unremarkable. IMPRESSION: No acute findings. No evidence of pulmonary embolism. Electronically signed by: Kathleen Hernandez On 12/05/2018 20:43:20 PM
== END 2018-12-05 21:00 | disposition home or self-care (01) ==
LOC: M ED 16:17
DX: M54.16 Radiculopathy, lumbar region (principal); R20.2 Paresthesia of skin; M50.80 Other cervical disc disorders, unspecified cervical region; R06.02 Shortness of breath; F41.9 Anxiety disorder, unspecified; F32.9 Major depressive disorder, single episode, unspecified; J98.59 Other diseases of mediastinum, not elsewhere classified; G43.909 Migraine, unspecified, not intractable, without status migrainosus; Z98.1 Arthrodesis status; Z88.8 Allergy status to other drugs, medicaments and biological substances; Z88.5 Allergy status to narcotic agent
CPT/HCPCS: 71275; 80048; 85027; 85379; 93971; 99284; Q9967

== ENCOUNTER → 2019-01-10 | Outpatient (CLI) | payer MEDICAID, MEDICARE ==
[~2019-01-10] MED LIST changes: +ACET-861 PO; +IBUP-1114 PO; +PANT40TA3 PO; +PROHANCE 279.3MG/ML 15ML VIAL (A9576) As Ordered ONE; +PROHANCE 279.3MG/ML 5ML VIAL (A9576) As Ordered ONE; +SULF1TAB93 PO
--- NOTE | 2019-01-10 17:11 | REP ---
MRI lumbar spine without and with contrast: History: Post lumbar laminectomy syndrome. Comparison lumbar spine MRI study is from June 02, 2017. Technique: Sagittal and axial T1 and T2-weighted scans are acquired in the usual fashion with and without fat saturation. Sequences include spin echo, turbo spin-echo, and STIR imaging sequences. Gadolinium enhancement dose is 20 ml of intravenous ProHance. MRI findings: Lumbar vertebral body heights are preserved. The patient is status post L5-S1 posterior element and facet joint fusion bilaterally. There is no evidence of focal disc protrusion at L5-S1. No neural foraminal narrowing is seen. No central canal stenosis is seen. There is mild central disc bulging. At L4-5, there is mild diffuse disc bulging. Facet hypertrophy and ligamentum flavum hypertrophy are noted bilaterally. No change from comparison study. At L3-4, there is mild ligamentum flavum hypertrophy. No neural foraminal narrowing or central canal stenosis is seen. At L2-3, and L1-2 there is no significant abnormality. Post gadolinium enhanced images demonstrate arthritis associated enhancement within the facet joints at L4-5 bilaterally and at L3-4 right more so than left. Impression: Status post L5-S1 posterior element fusion. 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 Disc bulging at L4-5 and L5-S1. Electronically Signed by Higinio Roe MD 01/11/2019 09:52 A
== END ==
LOC: M RAD 14:26
PROVIDERS: ATTEND Nurse Practitioner Family
DX: M96.1 Postlaminectomy syndrome, not elsewhere classified (principal); M51.26 Other intervertebral disc displacement, lumbar region; Z98.1 Arthrodesis status
CPT/HCPCS: 72158; A9576

== ENCOUNTER → 2019-04-10 | Outpatient (CLI) | payer MEDICARE, MEDICAID ==
[~2019-04-10] MED LIST changes: -ACET-861 PO; -IBUP-1114 PO; -PANT40TA3 PO; -PROHANCE 279.3MG/ML 15ML VIAL (A9576) As Ordered ONE; -PROHANCE 279.3MG/ML 5ML VIAL (A9576) As Ordered ONE; -SULF1TAB93 PO
--- NOTE | 2019-04-10 12:36 | REP ---
MRI thoracic spine: 04/10/2019. Indication: Thoracic pain. Comparison: 06/02/2017. Technique: Multiplanar short and long TR sequences of the thoracic spine were performed without IV Gadolinium. Findings: Thoracic vertebral body alignment is anatomic. No worrisome marrow signal is present. The visualized cord is normal. Anterior spurring is noted most pronounced at T10/T11. There are no focal disc herniations. There is no significant spinal canal or neural foraminal narrowing. Postoperative sequelae of the cervical thoracic junction renders evaluation this area of somewhat suboptimal secondary to surgical hardware associated susceptibility artifact. Impression: No focal disc herniations or areas of significant spinal canal / neural foraminal narrowing. Electronically Signed by Morgan Major DO 04/10/2019 12:27 P
== END ==
LOC: M RAD 10:59
PROVIDERS: ATTEND Orthopaedic Surgery
DX: Z01.818 Encounter for other preprocedural examination (principal); M96.1 Postlaminectomy syndrome, not elsewhere classified

== ENCOUNTER 2019-06-01 06:11 | Day surgery (SDC) | payer MEDICARE, MEDICAID ==
[2019-06-01] VITALS (8 sets, daily range): BP systolic 112–146; BP diastolic 83–95
[~2019-06-01] VITALS: Ht 167.6 cm; Wt 122.0 kg
[~2019-06-01 06:11] MED LIST changes: +ACET-861 PO; +IBUP-1114 PO; +LR 1,000 ML IV ONE; +PANT40TA3 PO; +SULF1TAB93 PO; +ceFAZolin SOD 1 GM in D5W MINI-BAG PLUS 50 ML IV ONE
[2019-06-01] MEDS ORDERED: MIDAZOLAM INJ 2 MG/2 ML VIAL (J2250) As Ordered ONE (07:15)
[2019-06-01] MEDS ORDERED: fentaNYL 250 MCG/5 ML INJECTION (J3010) As Ordered ONE (07:15)
[2019-06-01] MEDS ORDERED: propofoL 200 MG/20 ML VIAL As Ordered ONE ×2 (07:17→09:15)
[2019-06-01] MEDS ORDERED: LIDOCAINE 2% INJ 100 MG/5 ML SDV (FOR ANES.) As Ordered ONE (07:17)
[2019-06-01] MEDS ORDERED: dexameTHASONE 4 MG/ML 1ML VIAL (J1100) As Ordered ONE (07:17)
[2019-06-01] MEDS ORDERED: ONDANSETRON 4MG/2ML VIAL (J2405) As Ordered ONE (07:17)
[2019-06-01] MEDS ORDERED: ROCURONIUM BROMIDE 50 MG/5 ML VIAL As Ordered ONE ×2 (07:17→08:36)
[2019-06-01] MEDS ORDERED: BUPIVACAINE HCL 0.25% 10 ML VIAL As Ordered ONE (07:19)
[2019-06-01] MEDS ORDERED: BUPIVACAINE LIPOSOME/PF 1.3% 20ML VIAL (13.3MG/ML)(EXPAREL)(C9290 PER1MG) As Ordered ONE (07:19)
[2019-06-01] MEDS ORDERED: SUGAMMADEX SODIUM 500 MG/5 ML VIAL (BRIDION) As Ordered ONE (08:00)
[2019-06-01] MEDS: BUPIVACAINE/EPIN 0.25% 30 ML VIAL As Ordered ONE (08:19)
[2019-06-01] MEDS ORDERED: SUCCINYLCHOLINE 100 MG/5 ML SYRINGE (J0330) As Ordered ONE (08:35)
[2019-06-01] MEDS ORDERED: PHENYLephrine HCL 500 MCG/5 ML (100MCG/ML) SYRINGE (J2370) As Ordered ONE (08:36)
[2019-06-01] MEDS ORDERED: ePHEDrine SULFATE 25 MG/5 ML(5MG/ML) SYRINGE As Ordered ONE (08:36)
[2019-06-01] MEDS ORDERED: ACETAMINOPHEN 1000MG 100ML IV BTL (OFIRMEV) (J0131 PER 10MG) As Ordered ONE (08:46)
[2019-06-01] MEDS ORDERED: HYDROmorphone HCL 2 MG/ML 1ML VIAL (J1170) As Ordered ONE (08:59)
[2019-06-01] MEDS ORDERED: KETOROLAC 60 MG/2 ML VIAL (J1885) As Ordered ONE (09:17)
[2019-06-01] MEDS ORDERED: fentaNYL 100 MCG/2 ML INJECTION (J3010) IV PRN (10:30)
[2019-06-01] MEDS ORDERED: ONDANSETRON 4MG/2ML VIAL (J2405) IV PRN (10:30)
[2019-06-01] MEDS ORDERED: METOCLOPRAMIDE INJ 10MG/2ML VIAL (J2765) IV PRN (10:30)
[2019-06-01] MEDS ORDERED: PERCOCET 5MG/325MG TAB PO PRN (10:30)
[2019-06-01] MEDS ORDERED: MORPHINE 2 MG/ML 1ML VIAL (J2270) IV PRN ×3 (10:30→13:30)
[2019-06-01] MEDS ORDERED: LR 1,000 ML IV SCH (10:30)
--- NOTE | 2019-06-01 11:02 | RO ---
DATE OF PROCEDURE: 06/01/2019 PREOPERATIVE DIAGNOSIS: Incarcerated umbilical hernia. POSTOPERATIVE DIAGNOSIS: Incarcerated umbilical hernia. PROCEDURE: Robotic-assisted laparoscopic umbilical hernia repair (incarcerated). SURGEON: Dr. Beto Ferreira HEARING AID SPECIALIST: Kendy Palmer (Provided instrument exchange, trocar placement and abdominal wall closure). ESTIMATED BLOOD LOSS: Minimal. FLUIDS: Crystalloid. DISPOSITION: The patient was extubated and brought to the recovery room awake, alert and hemodynamically stable. BRIEF OPERATIVE SUMMARY: The patient was taken to the operating room and was given general anesthesia. After adequate anesthesia and preoperative antibiotics were given, the patient was prepped and draped in the usual sterile fashion. Next, a left upper quadrant incision was made with skin knife. Blunt dissection was carried down to subcutaneous fat and down to fascia. Veress needle placed into the abdominal cavity, insufflated to 15 mm of pressure. A dilating 8 mm trocar was placed and an epigastric trocar was placed and the falciform ligament was taken down with monopolar cut scissors and cautery was used in this area as well. Once the falciform was taken down, then I was able to feel that we could do a second port on the left upper quadrant and the right upper quadrant to provide top down approach to the peritoneum that was present. Otherwise, the peritoneum was quite thinned out laterally, but in any case, we were able to incise the preperitoneal fat in the midline and mobilize this all the way down to the umbilicus. The umbilicus had some omentum in it that was adequately reduced quite easily well upon insufflation and I was able to reduce this manually. In any case, the peritoneal flap was created using electrocautery and blunt dissection. Eventually this was mobilized down to the level of the hernia sac which was mobilized. There was a small rent in the hernia sac made, but otherwise this continued to be mobilized inferior to the umbilicus for several centimeters. Once this was mobilized quite nicely, the lateral aspects were dissected down as well. I could get about 4 cm lateral to the umbilicus after closure of the midline. In any case, the midline/umbilical defect was closed with a #0 Stratafix in a running manner and then ProGrip was placed in this preperitoneal space and brought up, cut to the appropriate size, and then placed in without difficulty. The lay of the mesh looked quite nice and the peritoneum was closed with #3-0 V-Loc. The defect at the umbilicus was closed with that running V-Loc suture. Next, Exparel was placed circumferentially around the umbilicus in the preperitoneal area similar to a tap block and the Exparel was also used at the subcostal incision sites. The incisions were closed with #4-0 Vicryl after all trocars were removed under direct visualization. Steri-Strips and a dry sterile dressing was applied. The patient was awakened, extubated and brought to the recovery room awake, alert and hemodynamically stable. Sponge and needle counts were correct times two.
[2019-06-01] MEDS ORDERED: NS 1,000 ML IV SCH ×2 (11:30→17:08)
[2019-06-01] MEDS ORDERED: NORCO, ANEXSIA 5/325MG TABLET (HYDROcodone/ACETAMINOPHEN) PO PRN ×3 (11:30→13:30)
[2019-06-01] MEDS: MORPHINE 4 MG/ML 1ML VIAL/SYRINGE (J2270) IV PRN ×2 (13:15→14:05)
[2019-06-01] MEDS ORDERED: MORPHINE 4 MG/ML 1ML VIAL/SYRINGE (J2270) As Ordered ONE (13:22)
[2019-06-01] MEDS ORDERED: KETOROLAC 30 MG/ML VIAL (J1885) IV PRN (16:00)
[2019-06-01] MEDS: NS 1,000 ML IV SCH ×2 (16:30→23:28)
[2019-06-01] MEDS: KETOROLAC 30 MG/ML VIAL (J1885) IV SCH ×2 (16:31→23:29)
[2019-06-01] MEDS ORDERED: diphenhydrAMINE INJ 50MG/ML VIAL (J1200) IV PRN (17:15)
[2019-06-01] MEDS ORDERED: NALBUPHINE HCL 10 MG/ML AMP (J2300) IV PRN (17:15)
[2019-06-01] MEDS ORDERED: MORPHINE 1MG/ML IN 0.9% NACL 100ML IV BAG IV PRN (17:15)
[2019-06-01] MEDS ORDERED: EPIDURAL/PCA KEYS XX PRN (17:15)
[2019-06-01] MEDS ORDERED: NALOXONE INJ 0.4 MG/1 ML VIAL (J2310) IV PRN (17:15)
[2019-06-01] MEDS: ONDANSETRON 4MG/2ML VIAL (J2405) IV PRN ×2 (18:49→23:29)
[2019-06-02] VITALS (7 sets, daily range): BP systolic 100–140; BP diastolic 52–87
[2019-06-02] MEDS ORDERED: PILL CUTTER 1 EACH XX PRN (04:45)
[2019-06-02] MEDS ORDERED: PANTOPRAZOLE 40MG INJ (PROTONIX) (C9113) IV ONE (04:45)
[2019-06-02] MEDS ORDERED: SIMETHICONE 80 MG CHEW TAB PO ONE (04:45)
[2019-06-02] MEDS: KETOROLAC 30 MG/ML VIAL (J1885) IV SCH ×4 (04:54→21:40)
[2019-06-02] MEDS: ONDANSETRON 4MG/2ML VIAL (J2405) IV PRN ×2 (05:02→15:53)
[2019-06-02] MEDS: IPRATROPIUM 0.5MG/ALBUTEROL 2.5MG INH SOL UD 3ML (DUONEB)(J7620) NEB PRN ×2 (05:15→14:30)
[2019-06-02] MEDS: NS 1,000 ML IV SCH ×2 (07:51→14:00)
[2019-06-02 07:55] LABS: HEMATOCRIT 39.3 % (42.0-52.0); HEMOGLOBIN 12.5 g/dl (13.5-17.5); MEAN CORPUSCULAR HEMOGLOBIN 29.1 pg (27.0-33.0); MEAN CORPUSCULAR HGB CONC 31.8 g/dl (32.0-36.5); MEAN CORPUSCULAR VOLUME 91.4 fl (80.0-96.0); PLATELET COUNT, AUTOMATED 221 10^3/uL (150-450); WHITE BLOOD COUNT 8.4 10^3/uL (4.0-10.0)
[2019-06-02 08:14] LABS: BLOOD UREA NITROGEN 15 MG/DL (7-18); CALCIUM LEVEL 8.2 MG/DL (8.5-10.1); CARBON DIOXIDE LEVEL 29 MEQ/L (21-32); CHLORIDE LEVEL 106 MEQ/L (98-107); CREATININE FOR GFR 0.94 MG/DL (0.70-1.30); GLOMERULAR FILTRATION RATE > 60.0 (>60); GLUCOSE, FASTING 121 MG/DL (70-100); POTASSIUM SERUM 3.9 MEQ/L (3.5-5.1); SODIUM LEVEL 140 MEQ/L (136-145)
[2019-06-02] MEDS: DOCUSATE SODIUM 100 MG CAP PO SCH ×2 (09:31→21:39)
[2019-06-02] MEDS: SIMETHICONE 80 MG CHEW TAB PO SCH ×4 (09:31→21:39)
--- NOTE | 2019-06-02 10:26 | IPN ---
DATE: 06/02/2019 The patient was admitted after his ventral hernia repair/umbilical hernia repair yesterday. He had a lot of spasm at his abdominal wall and some distension. He was unable to get rid of a lot of the air and because of this, because of pain intolerance he was admitted overnight. The patient does have a history of significant narcotic use for pain issues in the past reportedly and has some sleep apnea issues. We have admitted him for observation overnight with oxygen monitoring. His saturations were coming down with sleeping. He has been taking poor inspiratory effort and somewhat splinting secondary to his abdominal discomfort and pain. Overall he states however, his pain is much better than it was last night, better under control. He is feeling less distended than he did last night. On his physical exam, he is still appears in distress as he did in the perioperative/postoperative recovery room and he continues with slight improvement of his overall appearance, but very slow progress/improvement. He has been afebrile. His lungs are diminished bilaterally with clear aeration superiorly. His heart is regular. His abdomen is distended, but once again quite hard to tell with his morbid obesity. He has had a very firm hard abdomen preoperatively and this is the case postoperatively. Although, he is a little bit softer in the lower abdomen/periumbilical area and he has more firmness around his upper trocar sites. Not seeing any hematoma at the incision sites. His dressings are clean and dry. IMPRESSION/PLAN: The patient has undergone a robotic assisted umbilical hernia repair and has not really tolerated this very well. From his standpoint, pain control is still poor. We will continue him on his patient controlled analgesia (COMMERCIAL REAL ESTATE ATTORNEY) for today. I have encouraged activity. He has walked around the nurses station three times this morning and he has had good urine output. He has minimal flatus at this point. No bowel movements. His white count is within normal limits. Thus, at this point I do feel that we will need to continue him on the COMMERCIAL REAL ESTATE ATTORNEY today. I anticipate his improvement should be significantly better by tomorrow, and if it is, he will probably be changed over to oral meds and discharged to home. From a respiratory standpoint with his activity level, I anticipate that his respiratory function will improve as well. He does have a history of sleep apnea and does not wear his bilevel positive airway pressure (BiPAP)/continuous positive airway pressure (CPAP) machine at home, and thus, I feel with his narcotic use and his mild desaturation that we should watch him with this as well overnight.
[2019-06-02] MEDS: PANTOPRAZOLE 40MG INJ (PROTONIX) (C9113) IV SCH (18:13)
[2019-06-03 02:00] VITALS: BP 116/57
[2019-06-03] MEDS: SIMETHICONE 80 MG CHEW TAB PO SCH ×3 (03:00→09:54)
[2019-06-03] MEDS: KETOROLAC 30 MG/ML VIAL (J1885) IV SCH (03:00)
[2019-06-03] MEDS: PANTOPRAZOLE 40MG INJ (PROTONIX) (C9113) IV SCH ×2 (05:44→06:00)
[2019-06-03 06:00] VITALS: BP 125/64
[2019-06-03] MEDS ORDERED: ONDANSETRON 4 MG TAB (S0181) PO PRN (06:15)
[2019-06-03] MEDS ORDERED: PANTOPRAZOLE 40MG TAB (PROTONIX) PO SCH (09:00)
[2019-06-03] MEDS: DOCUSATE SODIUM 100 MG CAP PO SCH (09:53)
[2019-06-03] MEDS ORDERED: KETOROLAC TROMETHAMINE 10 MG TAB PO SCH (10:00)
== END 2019-06-03 12:30 | disposition home or self-care (01) ==
LOC: M SDC 06:11 → M MSPAV 16:00 → M SDC 06-03 12:30
PROVIDERS: ATTEND Surgery
DX: K42.0 Umbilical hernia with obstruction, without gangrene (principal); G47.30 Sleep apnea, unspecified; R07.9 Chest pain, unspecified; M81.0 Age-related osteoporosis without current pathological fracture; F41.9 Anxiety disorder, unspecified; F32.9 Major depressive disorder, single episode, unspecified; G43.909 Migraine, unspecified, not intractable, without status migrainosus; Z88.8 Allergy status to other drugs, medicaments and biological substances; Z79.899 Other long term (current) drug therapy
CPT/HCPCS: 36415; 49653; 80048; 85027; 94640; 96361; 96374; 96375; 96376; C1781; C9113; C9290; J0131; J0330; J0690; J1100; J1170; J1885; J2250; J2270; J2370; J2405; J3010

== ENCOUNTER 2019-06-06 21:34 | Emergency (ER) | payer MEDICARE, MEDICAID ==
[~2019-06-06] VITALS: Ht 167.6 cm; Wt 129.2 kg
[~2019-06-06 21:34] MED LIST changes: -LR 1,000 ML IV ONE; -ceFAZolin SOD 1 GM in D5W MINI-BAG PLUS 50 ML IV ONE
[2019-06-06] MEDS ORDERED: KETO10TAB (21:51)
[2019-06-06] MEDS ORDERED: NS 1,000 ML IV ONE (22:45)
[2019-06-06] MEDS ORDERED: MORPHINE 4 MG/ML 1ML VIAL/SYRINGE (J2270) IV ONE (22:45)
[2019-06-06] MEDS ORDERED: ONDANSETRON 4MG/2ML VIAL (J2405) IV ONE (22:45)
[2019-06-06] MEDS ORDERED: ISOVUE-370 76% 100ML VIAL (Q9967) As Ordered ONE (23:08)
[2019-06-06 23:11] LABS: BASO % 0.2 % (0.0-1.0); EOS # 0.2 10^3/uL (0.0-0.5); EOS % 3.3 % (0.0-3.0); HEMATOCRIT 42.8 % (42.0-52.0); HEMOGLOBIN 13.8 g/dl (13.5-17.5); LYMPH # 1.9 10^3/uL (1.5-5.0); MEAN CORPUSCULAR HEMOGLOBIN 28.5 pg (27.0-33.0); MEAN CORPUSCULAR HGB CONC 32.2 g/dl (32.0-36.5); MEAN CORPUSCULAR VOLUME 88.2 fl (80.0-96.0); MONO # 0.5 10^3/uL (0.0-0.8); MONO % 7.9 % (0.0-5.0); NEUTROPHILS # 3.2 10^3/uL (1.5-8.5); NEUTROPHILS % 55.4 % (36.0-66.0); PLATELET COUNT, AUTOMATED 236 10^3/uL (150-450); RED BLOOD COUNT 4.85 10^6/uL (4.30-6.10); WHITE BLOOD COUNT 5.8 10^3/uL (4.0-10.0)
[2019-06-06 23:46] LABS: ALBUMIN 3.6 GM/DL (3.2-5.2); BILIRUBIN,DIRECT 0.1 MG/DL (0.0-0.2); BILIRUBIN,TOTAL 0.3 MG/DL (0.2-1.0); TOTAL PROTEIN 6.8 GM/DL (6.4-8.2)
[2019-06-07] MEDS: MORPHINE 4 MG/ML 1ML VIAL/SYRINGE (J2270) IV PRN ×2 (00:08→01:44)
--- NOTE | 2019-06-07 00:36 | REPVR ---
PROCEDURE INFORMATION: Exam: CT Abdomen And Pelvis With Contrast Exam date and time: 06/06/2019 10:31 PM Age: 48 years old Clinical indication: Abdominal pain; Generalized; Prior surgery; Surgery date: 3-7 days post-operative; Surgery type: Lap umb. Hernia; Additional info: Severe abdominal pain; S/P umbilical hernia repair TECHNIQUE: Imaging protocol: Computed tomography of the abdomen and pelvis with intravenous contrast. Radiation optimization: All CT scans at this facility use at least one of these dose optimization techniques: automated exposure control; mA and/or kV adjustment per patient size (includes targeted exams where dose is matched to clinical indication); or iterative reconstruction. Contrast material: ISO; Contrast volume: 100 ml; Contrast route: AC; COMPARISON: CT ABD/PEL W/IV CONTRAST ONLY 05/20/2019 10:45 PM FINDINGS: Tubes, catheters and devices: Spinal stimulator electrode is present with the electrode terminating at T7-8. Liver: Normal. No mass. Gallbladder and bile ducts: Normal. No calcified stones. No ductal dilation. Pancreas: Normal. No ductal dilation. Spleen: Normal. No splenomegaly. Adrenals: Normal. No mass. Kidneys and ureters: Normal. No hydronephrosis. Stomach and bowel: Unremarkable. No obstruction. No mucosal thickening. Appendix: No evidence of appendicitis. Intraperitoneal space: Unremarkable. No free air. No significant fluid collection. Vasculature: Unremarkable. No abdominal aortic aneurysm. Lymph nodes: Unremarkable. No enlarged lymph nodes. Bladder: Unremarkable as visualized. Reproductive: Unremarkable as visualized. Bones/joints: There are degenerative changes in the spine and pelvis. Bilateral hip arthroplasties. Soft tissues: Small amount of subcutaneous gas in the anterior abdominal wall, presumably related to recent surgery. Mild subcutaneous edema. No abscess or other fluid collection. Small fat-containing periumbilical hernia. The hernia is smaller but there is mild edema in the herniated fat. No other hernias. IMPRESSION: 1. Persistent small periumbilical hernia with mild edema in the herniated fat. 2. No new hernia or other acute abnormalities. Electronically signed by: Khurram Maher On 06/07/2019 00:35:37 AM
[2019-06-07] MEDS ORDERED: MORPHINE 10 MG/ML 1ML VIAL (J2270) IV ONE (01:15)
[2019-06-07] MEDS ORDERED: KETOROLAC 30 MG/ML VIAL (J1885) IV ONE (03:00)
[2019-06-07 03:39] VITALS: BP 140/77
== END 2019-06-07 03:51 | disposition home or self-care (01) ==
LOC: M ED 21:34
DX: L76.34 Postprocedural seroma of skin and subcutaneous tissue following other procedure (principal); K21.9 Gastro-esophageal reflux disease without esophagitis; Z98.890 Other specified postprocedural states; Z88.5 Allergy status to narcotic agent; Z88.8 Allergy status to other drugs, medicaments and biological substances
CPT/HCPCS: 74177; 80047; 80076; 83605; 83690; 85025; 93041; 96374; 96375; 96376; 99285; J1885; J2270; J2405; Q9967

== ENCOUNTER → 2020-01-27 | Outpatient (CLI) | payer MEDICARE, MEDICAID ==
[~2020-01-27] MED LIST changes: +CYCL-707 PO; -CYCL10TA PO; +KETO10TAB; -MORP1SOL3 PO; +MORP1SOL4 PO; +PANT40TA29 PO; -PANT40TA3 PO
== END ==
LOC: M LABSMTC 09:35
PROVIDERS: ATTEND Anesthesiology Pain Medicine
DX: Z20.828 Contact with and (suspected) exposure to other viral communicable diseases (principal)
CPT/HCPCS: C9803; U0003

== ENCOUNTER → 2020-02-13 | Outpatient (CLI) | payer MEDICARE, MEDICAID | LOC: M LABSMTC 11:00 | PROVIDERS: ATTEND Anesthesiology Pain Medicine | DX: Z20.828 Contact with and (suspected) exposure to other viral communicable diseases (principal) | CPT/HCPCS: C9803; U0003 ==

== ENCOUNTER → 2020-03-23 | Outpatient (CLI) | payer MEDICARE, MEDICAID | LOC: M LABSMTC 11:04 | PROVIDERS: ATTEND Anesthesiology Pain Medicine | DX: Z01.812 Encounter for preprocedural laboratory examination (principal); Z20.828 Contact with and (suspected) exposure to other viral communicable diseases ==

== ENCOUNTER → 2020-03-26 | Outpatient (CLI) | payer MEDICARE, MEDICAID | LOC: M LABSMTC 12:27 | PROVIDERS: ATTEND Anesthesiology Pain Medicine | DX: Z20.828 Contact with and (suspected) exposure to other viral communicable diseases (principal) ==

== ENCOUNTER 2020-06-04 13:06 | Outpatient (RCR) | payer MEDICARE, MEDICAID | END 2020-06-08 | LOC: M PT 13:06 | PROVIDERS: ATTEND Physician Assistant Surgical | DX: M25.512 Pain in left shoulder (principal); S40.012D Contusion of left shoulder, subsequent encounter; S46.012D Strain of muscle(s) and tendon(s) of the rotator cuff of left shoulder, subsequent encounter ==

== ENCOUNTER → 2020-06-16 | Outpatient (CLI) | payer OTHER, MEDICAID, MEDICARE ==
[2020-06-16 15:51] LABS: HEMATOCRIT 45.2 % (42.0-52.0); HEMOGLOBIN 14.8 g/dl (13.5-17.5); MEAN CORPUSCULAR HEMOGLOBIN 29.1 pg (27.0-33.0); MEAN CORPUSCULAR HGB CONC 32.7 g/dl (32.0-36.5); PLATELET COUNT, AUTOMATED 247 10^3/uL (150-450); RED BLOOD COUNT 5.08 10^6/uL (4.30-6.10); WHITE BLOOD COUNT 8.7 10^3/uL (4.0-10.0)
[2020-06-16 16:11] LABS: INR 1.01; PROTHROMBIN TIME 13.5 SECONDS (12.5-14.3)
[2020-06-16 16:12] LABS: PARTIAL THROMBOPLASTIN TIME 30.2 SECONDS (24.2-38.5)
[2020-06-16 16:16] LABS: BLOOD UREA NITROGEN 21 MG/DL (7-18); CREATININE FOR GFR 1.04 MG/DL (0.70-1.30); GLOMERULAR FILTRATION RATE > 60.0 (>56)
== END ==
LOC: M LAB 15:03
PROVIDERS: ATTEND Orthopaedic Surgery
DX: M54.2 Cervicalgia (principal)

== ENCOUNTER → 2020-06-18 | Outpatient (CLI) | payer OTHER ==
[~2020-06-18] MED LIST changes: +ISOVUE-M 300 61% 15ML VIAL As Ordered ONE; +LIDOCAINE 1% MDV 20ML VIAL As Ordered ONE
--- NOTE | 2020-06-18 09:40 | REP ---
INDICATION: DORASALGIA / CERVICALGIA. Dorsal column stimulator. Status post cervical spine and lumbosacral spine fusion. COMPARISON: Comparison cervical spine radiographs are from April 26, 2017. There is a comparison MRI of the cervical spine from February 07, 2017.. TECHNIQUE: Helical scanning is acquired and overlapping 2 mm high resolution axial images were generated and reviewed at bone and soft tissue window settings. Coronal and sagittal multiplanar re-formations images are generated. Intrathecal contrast was injected prior to scanning. The injection procedure is performed and dictated separately. FINDINGS: Preliminary neuropsychology medical consultant views demonstrate ventral discectomy and fusion hardware in place across C4 through C7 with dorsal fixation hardware and interconnecting rods bilaterally C4 to the 2nd thoracic level. On CT images, cervical vertebral body heights are preserved and alignment is normal. There is fusion complete which appears complete across the C4-5 and C5-6 disc levels. The C6-7 disc appears fused as well. There is good opacification of the thecal sac and cerebral spinal fluid from the craniocervical junction to the upper thoracic level. The cervical cord is normal in course, caliber and contour. No cord compressive lesion is seen. No central canal stenosis is appreciated. No focal cervical disc protrusion is seen. The upper thoracic cord is unremarkable. No neural foraminal impingement or bony stenosis is seen. There are mild osteoarthritic facet changes at C3-4. Craniocervical junction is unremarkable.. IMPRESSION: Extensive ventral and dorsal fusion C4 through T2 as above. Mild degenerative disc and facet changes C3-4. No spinal stenosis or cord compressive lesion. No neural foraminal impingement is appreciated.. <Electronically signed by Jassi Roe > 06/18/20 0941
--- NOTE | 2020-06-18 09:48 | REP ---
INDICATION: DORASALGIA / CERVICALGIA. Dorsal column stimulator. The cervical and lumbosacral spine fusion. COMPARISON: Comparison MRI T-spine study 10 April 2019.. TECHNIQUE: The intrathecal contrast injection procedure is performed and dictated separately. Helical scanning is acquired and 4 mm axial images re-formatted. Coronal and sagittal MPR images are generated. FINDINGS: Preliminary channeler insole images demonstrate dorsal transpedicle screw and interconnecting tashia spine fusion fixation in the T1 and T2 levels bilaterally unchanged. A dorsal column stimulator lead is seen in place in the midthoracic spine on channeler insole images. There is good opacification of the thoracic spine thecal sac. The tip of the conus medullaris is knee is seen at L1 normal in position and appearance. The thoracic cord is normal in course, caliber and position. No cord compressive lesion is seen. The dorsal column stimulator lead terminates in the dorsal aspect of the spinal canal at the T8 level superior endplate. There is moderate degenerative discogenic spurring in the right anterior aspect of the lower thoracic spine. The no thoracic disc protrusion is seen producing thecal sac compression. The cauda equina is unremarkable. No cord compressive lesion is seen. No bony neural foraminal lesion is appreciated.r there is a alex 12 byrr 15 mm lymph node in the anterior mediastinum unchanged from a December 05, [address] study. No other significant soft tissue finding. Intrarenal nephrolithiasis is noted in the upper pole of the left kidney, 3 mm calculus. This is unchanged from [address] study. IMPRESSION: No evidence of thecal sac or cord compression seen. Dorsal column stimulator and cervical spine fusion hardware as above. <Electronically signed by Jassi Roe > 06/18/20 0934
[2020-06-18 10:48] VITALS: BP 132/60
--- NOTE | 2020-06-18 16:31 | REP ---
PROCEDURE NAME: MYELOGRAM, THORACIC CLINICAL INFORMATION: DORASALGIA / CERVICALGIA. PROCEDURE DESCRIPTION: The procedure was performed by Pily Justice [facility], under the direct supervision of Dr. Roe. The risks and benefits of the procedure were explained to the patient and an informed consent was obtained both verbally and written. Directly prior to the start of the procedure a formal time-out was completed in the procedure room. The L3-4 interspace was localized using fluoroscopic guidance. The skin was prepped and draped in a sterile fashion. Five ml 1 % lidocaine 10 milligrams/milliliter was used as a local anesthetic. Using fluoroscopic guidance a 22 gauge spinal needle was inserted and advanced into the thecal sac. Ten mL of Isovue-M 300 was injected. Monitoring fluoroscopic images showed no thecal sac compression. The needle was removed and the patient was taken to CT for postprocedural imaging. 0.5 minutes of fluoroscopy time was utilized for this procedure. Some fluoroscopic images are performed with last image hold technology. These images require no additional radiation. The patient tolerated the procedure well and there were no immediate complications. After the appropriate amount of monitored chondral assist the patient was discharged back to the unit. CONCLUSION: Fluoroscopic guided injection for myelogram. Monitoring fluoroscopic images demonstrate no thecal sac compression. <Electronically signed by Pily Justice > 06/18/20 [id number] <Electronically signed by Jassi Roe > 06/18/20 [id number]
== END ==
LOC: M IRPRO 07:12
PROVIDERS: ATTEND Orthopaedic Surgery
DX: M54.2 Cervicalgia (principal); M54.5 Low back pain
CPT/HCPCS: 62305; 72125; 72128; Q9967

== ENCOUNTER → 2020-10-10 | Outpatient (CLI) | payer MEDICARE, MEDICAID ==
[~2020-10-10] MED LIST changes: +BACTDSTA PO; -ISOVUE-M 300 61% 15ML VIAL As Ordered ONE; -LIDOCAINE 1% MDV 20ML VIAL As Ordered ONE; -SULF1TAB93 PO
[2020-10-10 12:48] LABS: HEMOGLOBIN 14.7 g/dl (13.5-17.5); MEAN CORPUSCULAR HEMOGLOBIN 29.1 pg (27.0-33.0); MEAN CORPUSCULAR HGB CONC 32.7 g/dl (32.0-36.5); MEAN CORPUSCULAR VOLUME 89.1 fl (80.0-96.0); PLATELET COUNT, AUTOMATED 254 10^3/uL (150-450); RED BLOOD COUNT 5.05 10^6/uL (4.30-6.10); WHITE BLOOD COUNT 5.6 10^3/uL (4.0-10.0)
[2020-10-10 13:17] LABS: HEMOGLOBIN A1c 5.4 %
[2020-10-10 13:20] LABS: ALBUMIN 3.9 GM/DL (3.2-5.2); ALT/SGPT 19 U/L (12-78); BILIRUBIN,TOTAL 0.4 MG/DL (0.2-1.0); BLOOD UREA NITROGEN 19 MG/DL (7-18); CALCIUM LEVEL 9.2 MG/DL (8.5-10.1); CARBON DIOXIDE LEVEL 28 MEQ/L (21-32); CHLORIDE LEVEL 107 MEQ/L (98-107); CPK CREATINE PHOSPHOKINASE 54 U/L (39-308); CREATININE FOR GFR 0.93 MG/DL (0.70-1.30); GLOMERULAR FILTRATION RATE > 60.0 (>56); GLUCOSE, FASTING 117 MG/DL (70-100); RHEUMATOID FACTOR QUANT < 10.0 IU/ML (<15.0); SODIUM LEVEL 140 MEQ/L (136-145); TOTAL PROTEIN 7.3 GM/DL (6.4-8.2)
[2020-10-10 13:30] LABS: FOLATE 21.3 NG/ML (>5.4); VITAMIN B12 LEVEL 354 PG/ML (247-911)
[2020-10-14 02:07] LABS: ANGIOTENSIN 1 CONVERTING ENZYM 46 U/L (14-82); ANTINUCLEAR ANTIBODIES DIRECT Negative (Negative); ARSENIC BLOOD 4 ug/L (2-23); CYCLIC CITRULLINATED PEPTIDE 12 units (0-19); LEAD BLOOD <1 ug/dL (0-4); Lyme Disease IgG/IgM Antibodie <0.91 ISR (0.00-0.90); Lyme Disease IgM Ab Quantitati <0.80 index (0.00-0.79); MERCURY BLOOD <1.0 ug/L (0.0-14.9)
== END ==
LOC: M LAB 11:21
PROVIDERS: ATTEND Nurse Practitioner Family
DX: R20.2 Paresthesia of skin (principal); G60.3 Idiopathic progressive neuropathy; Z79.899 Other long term (current) drug therapy

== ENCOUNTER → 2021-01-14 | Outpatient (REF) | payer MEDICARE, MEDICAID ==
[2021-01-14 17:14] LABS: C REACTIVE PROTEIN QUANTITATIV < 0.30 MG/DL (0.00-0.30); RHEUMATOID FACTOR QUANT < 10.0 IU/ML (<15.0); URIC ACID 5.6 MG/DL (3.5-7.2)
== END ==
LOC: M LAB REF 16:26
PROVIDERS: ATTEND Family Medicine
DX: M25.551 Pain in right hip (principal); M25.552 Pain in left hip

== ENCOUNTER → 2021-01-29 | Outpatient (CLI) | payer MEDICARE, MEDICAID ==
--- NOTE | 2021-01-29 17:33 | REP ---
INDICATION: PAIN OF RIGHT HIP NEEDS DISK AND LABS. COMPARISON: CT abdomen pelvis 06/06/2019. TECHNIQUE: Axial CT right hip performed with sagittal and coronal reconstruction images. FINDINGS: Total right hip prosthesis is noted. The femoral component demonstrates no adjacent osseous fracture. There is an area of osteolysis directly adjacent to the metallic prosthesis involving the superior aspect of the greater trochanter. There is no fracture of the acetabulum. However, there is an area of osteolysis along the inferior margin of the prosthetic acetabulum within the ischium. The cortex in this region is intact. There is also a small area of osteolysis along the prosthetic acetabulum at its superolateral aspect. There is a small bone island in the inferior right iliac bone. The metallic femoral head directly contacts the metallic acetabulum. IMPRESSION: Small area of osteolysis in the superior aspect of the greater trochanter. There is another area of osteolysis along the inferior margin of the prosthetic acetabulum. There is also a small area of osteolysis along the prosthetic acetabulum at its superolateral aspect. There is no fracture. The metallic femoral head directly contacts the metallic acetabulum. <Electronically signed by Taiwo Butterfield > 01/29/21 [id number]
== END ==
LOC: M LAB 14:38
PROVIDERS: ATTEND Physician Assistant
DX: M89.551 Osteolysis, right thigh (principal); M25.551 Pain in right hip; T56.2X1A Toxic effect of chromium and its compounds, accidental (unintentional), initial encounter; Z96.641 Presence of right artificial hip joint; Z79.899 Other long term (current) drug therapy; T56.894A Toxic effect of other metals, undetermined, initial encounter

== ENCOUNTER 2021-04-29 11:36 | Outpatient (CLI) | payer MEDICARE, MEDICAID ==
[~2021-04-29] VITALS: Ht 165.1 cm; Wt 120.0 kg
[~2021-04-29 11:36] MED LIST changes: +ALBUTEROL 90 MCG/ACT 8GM HFA INHALER INH PRN; +ALBUTEROL SULFATE 2.5 MG/0.5 ML INH NEB SOLN INH PRN; +EPINEPHrine INJ 1 MG/ML 1ML AMP IM PRN; +NS 1,000 ML IV SCH; +diphenhydrAMINE 50MG/ML VIAL (J1200) IV PRN; +methylPREDNISolone 125MG 2ML VIAL IV PRN
[2021-04-29] MEDS ORDERED: CASIRIVIMAB/IMDEVIMAB 1,200 MG in NS 250 ML IV ONE (12:00)
[2021-04-29 12:16] VITALS: BP 110/61
[2021-04-29 12:46] VITALS: BP 121/73
[2021-04-29 13:16] VITALS: BP 120/59
[2021-04-29 14:16] VITALS: BP 120/61
== END 2021-04-29 14:16 | disposition home or self-care (01) ==
LOC: M OPCLI4PR 11:36
PROVIDERS: ATTEND Physician Assistant Medical
DX: U07.1 COVID-19 (principal); Z88.8 Allergy status to other drugs, medicaments and biological substances

== ENCOUNTER → 2021-06-05 | Outpatient (CLI) | payer MEDICARE, MEDICAID ==
[~2021-06-05] MED LIST changes: -ALBUTEROL 90 MCG/ACT 8GM HFA INHALER INH PRN; -ALBUTEROL SULFATE 2.5 MG/0.5 ML INH NEB SOLN INH PRN; -EPINEPHrine INJ 1 MG/ML 1ML AMP IM PRN; -NS 1,000 ML IV SCH; -diphenhydrAMINE 50MG/ML VIAL (J1200) IV PRN; -methylPREDNISolone 125MG 2ML VIAL IV PRN
[2021-06-10 14:10] LABS: CHROMIUM PLASMA 1.9 ug/L (0.1-2.1)
== END ==
LOC: M RAD 11:12
PROVIDERS: ATTEND Orthopaedic Surgery
DX: M79.661 Pain in right lower leg (principal); M79.89 Other specified soft tissue disorders; Z96.649 Presence of unspecified artificial hip joint

== ENCOUNTER → 2021-08-07 | Outpatient (REF) | payer MEDICARE, MEDICAID ==
[2021-08-07 18:16] LABS: AMORPHOUS SEDIMENT LARGE (NEGATIVE); APPEARANCE, URINE TURBID (CLEAR); BACTERIA, URINE AUTO NEGATIVE (NEGATIVE); BILIRUBIN, URINE AUTO NEGATIVE (NEGATIVE); BLOOD, URINE BLOOD NEGATIVE (NEGATIVE); COLOR, URINE YELLOW (YELLOW); GLUCOSE, URINE (UA) AUTO NEGATIVE (NEGATIVE); KETONE, URINE AUTO NEGATIVE (NEGATIVE); LEUKOCYTE ESTERASE, URINE AUTO NEGATIVE (NEGATIVE); MUCUS, URINE SMALL (NEGATIVE); NITRITE, URINE AUTO NEGATIVE (NEGATIVE); PROTEIN, URINE AUTO NEGATIVE (NEGATIVE); RBC, URINE AUTO 1 /HPF (0-3); SPECIFIC GRAVITY URINE AUTO 1.027 (1.002-1.035); SQUAMOUS EPITHELIAL CELL UR AU 0 /HPF (0-6); WBC, URINE AUTO 0 /HPF (0-3)
== END ==
LOC: M LAB REF 16:34
PROVIDERS: ATTEND Family Medicine
DX: Z01.818 Encounter for other preprocedural examination (principal)

== ENCOUNTER → 2021-08-11 | Outpatient (CLI) | payer MEDICAID, MEDICARE, OTHER ==
[~2021-08-11] MED LIST changes: +ISOVUE-M 300 61% 15ML VIAL As Ordered ONE
[2021-08-11 12:08] VITALS: BP 160/84
== END ==
LOC: M IRPRO 08:52
PROVIDERS: ATTEND Orthopaedic Surgery
DX: M54.50 Low back pain, unspecified (principal)
CPT/HCPCS: 62304; 72131; 77002; Q9967

== ENCOUNTER → 2021-09-22 | Outpatient (REF) | payer MEDICARE, MEDICAID ==
[~2021-09-22] MED LIST changes: -ISOVUE-M 300 61% 15ML VIAL As Ordered ONE
== END ==
LOC: M LAB REF 12:28
PROVIDERS: ATTEND Family Medicine
DX: R53.83 Other fatigue (principal); D64.89 Other specified anemias

== ENCOUNTER → 2021-12-31 | Outpatient (CLI) | payer MEDICARE, MEDICAID ==
[2021-12-31 15:50] LABS: HEMATOCRIT 43.6 % (42.0-52.0); HEMOGLOBIN 14.8 g/dl (13.5-17.5); MEAN CORPUSCULAR HGB CONC 33.9 g/dl (32.0-36.5); MEAN CORPUSCULAR VOLUME 85.5 fl (80.0-96.0); PLATELET COUNT, AUTOMATED 240 10^3/uL (150-450)
[2021-12-31 16:21] LABS: INR 0.98; PROTHROMBIN TIME 13.4 SECONDS (12.7-14.5)
[2021-12-31 16:22] LABS: PARTIAL THROMBOPLASTIN TIME 30.5 SECONDS (25.9-37.0)
== END ==
LOC: M LAB 14:55
PROVIDERS: ATTEND Physician Assistant Medical
DX: Z01.818 Encounter for other preprocedural examination (principal); M54.9 Dorsalgia, unspecified

== ENCOUNTER 2022-08-13 02:44 | Emergency (ER) | payer MEDICAID, MEDICARE ==
[2022-08-13] MEDS ORDERED: HYDROMORPHONE HCL 0.5 MG/ 0.5 ML SYRINGE IV ONE ×2 (03:25→04:10)
[2022-08-13] MEDS ORDERED: NS 1,000 ML IV ONE (03:25)
[2022-08-13] MEDS ORDERED: diazePAM 10MG/2ML SYRINGE IV ONE (04:10)
[2022-08-13] MEDS ORDERED: PERCOCET 5MG/325MG TAB PO ONE (06:30)
[2022-08-13] MEDS ORDERED: KETOROLAC 30 MG/ML 1ML VIAL IV ONE (07:00)
[2022-08-13 08:59] VITALS: BP 160/79
== END 2022-08-13 09:00 | disposition home or self-care (01) ==
LOC: M ED 02:44
DX: M25.551 Pain in right hip (principal); Z88.5 Allergy status to narcotic agent; Z88.8 Allergy status to other drugs, medicaments and biological substances
CPT/HCPCS: 73502; 96374; 96375; 96376; 97116; 97161; 97530; 99284; J1170; J1885; J3360

== ENCOUNTER 2023-12-25 20:03 | Emergency (ER) | payer MEDICARE, MEDICAID ==
[~2023-12-25] VITALS: Ht 165.1 cm; Wt 127.8 kg
[2023-12-25] MEDS ORDERED: PROHANCE 279.3MG/ML 5ML VIAL As Ordered ONE (22:16)
[2023-12-25] MEDS ORDERED: PROHANCE 279.3MG/ML 15ML VIAL As Ordered ONE (22:16)
[2023-12-25] MEDS: HYDROMORPHONE HCL 0.5 MG/ 0.5 ML SYRINGE IV ONE ×2 (22:30→23:44)
[2023-12-25 23:48] LABS: BASO % 0.4 % (0.0-1.0); EOS # 0.1 10^3/uL (0.0-0.5); EOS % 2.2 % (0.0-3.0); HEMATOCRIT 41.2 % (42.0-52.0); HEMOGLOBIN 13.7 g/dl (13.5-17.5); LYMPH # 1.5 10^3/uL (1.5-5.0); LYMPH % 33.8 % (24.0-44.0); MEAN CORPUSCULAR HEMOGLOBIN 28.1 pg (27.0-33.0); MEAN CORPUSCULAR HGB CONC 33.3 g/dl (32.0-36.5); MEAN CORPUSCULAR VOLUME 84.4 fl (80.0-96.0); MONO # 0.3 10^3/uL (0.0-0.8); MONO % 7.1 % (2.0-8.0); NEUTROPHILS # 2.6 10^3/uL (1.5-8.5); NEUTROPHILS % 56.5 % (36.0-66.0); PLATELET COUNT, AUTOMATED 217 10^3/uL (150-450); RED BLOOD COUNT 4.88 10^6/uL (4.30-6.10); WHITE BLOOD COUNT 4.5 10^3/uL (4.0-10.0)
[2023-12-25 23:51] VITALS: BP 103/56; TEMP 98; O2SAT 98
[2023-12-25 23:56] LABS: ERYTHROCYTE SEDIMENTATION RATE 23 mm/hr (0-20)
[2023-12-26 00:17] LABS: ALBUMIN 3.6 G/DL (3.2-5.2); ALKALINE PHOSPHATASE 99 U/L (46-116); ALT/SGPT 14 U/L (7.0-40); AST/SGOT 13 U/L (<34); BILIRUBIN,DIRECT 0.2 MG/DL (<0.4); BILIRUBIN,TOTAL 0.5 MG/DL (0.3-1.2); BLOOD UREA NITROGEN 16 MG/DL (9-23); CALCIUM LEVEL 8.8 MG/DL (8.5-10.1); CARBON DIOXIDE LEVEL 26 MMOL/L (20-31); CHLORIDE LEVEL 107 MMOL/L (98-107); CREATININE FOR GFR 0.84 MG/DL (0.70-1.30); GLOMERULAR FILTRATION RATE > 60.0 (>56); GLUCOSE, FASTING 90 MG/DL (60-100); POTASSIUM SERUM 4.2 MMOL/L (3.5-5.1); SODIUM LEVEL 137 MMOL/L (136-145); TOTAL PROTEIN 6.8 G/DL (5.7-8.2)
[2023-12-26] MEDS: ONDANSETRON 4MG 2ML VIAL IV ONE (00:32)
[2023-12-26] MEDS ORDERED: DEXA6TAB PO (00:54)
[2023-12-26] MEDS ORDERED: ONDA-282 PO (00:54)
[2023-12-26] MEDS ORDERED: OXYC-517 PO (00:54)
[2023-12-26] MEDS: OXYCODONE/APAP 5MG/325MG(HOME DOSE PACK) PO ONE (01:09)
[2023-12-26] MEDS: dexAMETHasone 20MG/5ML VIAL IV ONE (01:09)
== END 2023-12-26 01:26 | disposition home or self-care (01) ==
LOC: M ED 20:03
DX: M54.16 Radiculopathy, lumbar region (principal); M51.26 Other intervertebral disc displacement, lumbar region; M47.816 Spondylosis without myelopathy or radiculopathy, lumbar region; J45.909 Unspecified asthma, uncomplicated; Z88.5 Allergy status to narcotic agent; Z88.8 Allergy status to other drugs, medicaments and biological substances; Z79.83 Long term (current) use of bisphosphonates; Z79.899 Other long term (current) drug therapy
CPT/HCPCS: 36415; 72110; 72158; 80048; 80076; 83605; 85025; 85652; 86140; 87040; 93041; 94760; 96374; 96375; 96376; 99284; A9576; J1100; J1170; J2405

== ENCOUNTER 2024-05-16 15:22 | Emergency (ER) | payer MEDICARE, MEDICAID ==
[~2024-05-16] VITALS: Ht 165.1 cm; Wt 129.6 kg
[~2024-05-16 15:22] MED LIST changes: -CYCL5TAB PO; +CYCL5TAB4 PO; +DEXA6TAB PO; +ONDA-282 PO; +OXYC-517 PO
[2024-05-16] MEDS: fentaNYL 100 MCG/2 ML INJECTION IV ONE (21:25)
[2024-05-16] MEDS: diazePAM 5MG TABLET PO ONE (21:43)
[2024-05-16] MEDS ORDERED: PROHANCE 279.3MG/ML 15ML VIAL As Ordered ONE (22:06)
[2024-05-16] MEDS ORDERED: PROHANCE 279.3MG/ML 5ML VIAL As Ordered ONE (22:06)
[2024-05-17] MEDS: METHOCARBAMOL 1,000 MG/10 ML VIAL IV ONE (00:18)
[2024-05-17] MEDS: MORPHINE 4 MG/ML 1ML VIAL IV ONE (00:19)
[2024-05-17] MEDS: methylPREDNISolone 125MG 2ML VIAL IV ONE (00:51)
[2024-05-17] MEDS: ONDANSETRON 4MG 2ML VIAL IV ONE (00:51)
[2024-05-17] MEDS: KETOROLAC 30 MG/ML 1ML VIAL IV ONE (02:03)
[2024-05-17 04:26] VITALS: BP 153/67; TEMP 97.5; O2SAT 95
== END 2024-05-17 04:25 | disposition home or self-care (01) ==
LOC: M ED 15:22
DX: M54.50 Low back pain, unspecified (principal); M47.897 Other spondylosis, lumbosacral region; M43.26 Fusion of spine, lumbar region; J45.909 Unspecified asthma, uncomplicated; G43.909 Migraine, unspecified, not intractable, without status migrainosus; G56.03 Carpal tunnel syndrome, bilateral upper limbs; Z79.83 Long term (current) use of bisphosphonates; Z79.1 Long term (current) use of non-steroidal anti-inflammatories (NSAID); Z79.899 Other long term (current) drug therapy; Z88.8 Allergy status to other drugs, medicaments and biological substances; Z96.643 Presence of artificial hip joint, bilateral; Z87.442 Personal history of urinary calculi
CPT/HCPCS: 72146; 72158; 96374; 96375; 99285; A9576; J1885; J2405; J2800; J2919; J3010

== ENCOUNTER → 2024-08-02 | Outpatient (REF) | payer MEDICARE, MEDICAID ==
[2024-08-02 13:14] LABS: ALBUMIN 3.5 G/DL (3.2-5.2); ALKALINE PHOSPHATASE 95 U/L (40-129); ALT/SGPT 25 U/L (7.0-40); AST/SGOT 16 U/L (<34); BASO % 0.5 % (0.0-1.0); BILIRUBIN,TOTAL 0.5 MG/DL (0.3-1.2); BLOOD UREA NITROGEN 19 MG/DL (9-23); CALCIUM LEVEL 8.9 MG/DL (8.5-10.1); CARBON DIOXIDE LEVEL 26 MMOL/L (20-31); CHLORIDE LEVEL 104 MMOL/L (98-107); CHOLESTEROL LEVEL 172 MG/DL (<200); CHOLESTEROL RISK RATIO 4.79 (<5); EOS # 0.2 10^3/uL (0.0-0.5); GLOMERULAR FILTRATION RATE > 60.0 (>56); GLUCOSE, FASTING 112 MG/DL (60-100); HDL CHOLESTEROL 35.9 MG/DL (>40); HEMOGLOBIN 14.6 g/dl (13.5-17.5); LDL CHOLESTEROL 113.9 MG/DL (<100); LYMPH # 2.5 10^3/uL (1.5-5.0); LYMPH % 40.6 % (24.0-44.0); MEAN CORPUSCULAR HEMOGLOBIN 28.3 pg (27.0-33.0); MEAN CORPUSCULAR HGB CONC 32.4 g/dl (32.0-36.5); MEAN CORPUSCULAR VOLUME 87.2 fl (80.0-96.0); MONO # 0.6 10^3/uL (0.0-0.8); MONO % 10.1 % (2.0-8.0); NEUTROPHILS # 2.7 10^3/uL (1.5-8.5); NEUTROPHILS % 44.5 % (36.0-66.0); NON-HDL-C 136.1 MG/DL; PLATELET COUNT, AUTOMATED 275 10^3/uL (150-450); POTASSIUM SERUM 4.3 MMOL/L (3.5-5.1); PSA SCREENING 0.49 NG/ML (< 4.00); RED BLOOD COUNT 5.16 10^6/uL (4.30-6.10); SODIUM LEVEL 139 MMOL/L (136-145); TOTAL PROTEIN 6.9 G/DL (5.7-8.2); TRIGLYCERIDES LEVEL 111 MG/DL (<150)
[2024-08-02 13:17] LABS: THYROID STIMULATING HORMONE 2.666 uIU/ML (0.55-4.78); TOTAL 25(OH) VITAMIN D 12.4 NG/ML (20.0-100.0)
[2024-08-02 13:24] LABS: HEMOGLOBIN A1c 5.3 % (4.0-6.0)
[2024-08-02 13:55] LABS: HEPATITIS C VIRUS ABY INDEX 0.04 INDEX (<0.8)
[2024-08-02 16:09] LABS: HIV 1&2 SCREEN REACTIVE (NEGATIVE)
[2024-08-06 12:28] LABS: HIV 1 AB NEGATIVE (NEGATIVE); HIV 2 AB NEGATIVE (NEGATIVE); HIV AG/AB, 4TH GEN REPEATEDLY REACTIVE (NON-REACTIVE)
== END ==
LOC: M LAB REF 12:15
PROVIDERS: ATTEND Physician Assistant
DX: J45.21 Mild intermittent asthma with (acute) exacerbation (principal); E55.9 Vitamin D deficiency, unspecified; I71.22 Aneurysm of the aortic arch, without rupture; E66.9 Obesity, unspecified; Z12.5 Encounter for screening for malignant neoplasm of prostate; Z79.899 Other long term (current) drug therapy; Z20.828 Contact with and (suspected) exposure to other viral communicable diseases
CPT/HCPCS: 71046; 80053; 80061; 82306; 83036; 83880; 84443; 85025; 86702; 86803; 87389; G0103

== ENCOUNTER → 2024-08-02 | Outpatient (CLI) | payer MEDICARE, MEDICAID | LOC: M RAD 09:30 | PROVIDERS: ATTEND Physician Assistant | DX: J45.21 Mild intermittent asthma with (acute) exacerbation (principal) ==

== ENCOUNTER 2024-12-11 16:25 | Emergency (ER) | payer MEDICARE, MEDICAID ==
[~2024-12-11] VITALS: Ht 165.1 cm; Wt 133.6 kg
[~2024-12-11 16:25] MED LIST changes: +KETO-204 PO; +METH-1165 PO; +MORP-138 PO; -MORP10SO PO; +MORP10SO21 PO; +MORP15TA2 PO; -MORP15TASA PO; +ZIPS1CAP7 PO; -ZIPS25CA3 PO
[2024-12-11 17:28] LABS: BASO # 0.0 10^3/uL (0.0-0.2); BASO % 0.2 % (0.0-1.0); EOS # 0.2 10^3/uL (0.0-0.5); EOS % 3.0 % (0.0-3.0); LYMPH # 2.3 10^3/uL (1.5-5.0); LYMPH % 41.6 % (24.0-44.0); MONO # 0.5 10^3/uL (0.0-0.8); MONO % 8.4 % (2.0-8.0); NEUTROPHILS # 2.6 10^3/uL (1.5-8.5); NEUTROPHILS % 46.6 % (36.0-66.0); PLATELET COUNT, AUTOMATED 238 10^3/uL (150-450)
[2024-12-11 17:56] LABS: ALT/SGPT 19 U/L (7.0-40); AST/SGOT 33 U/L (<34); CALCIUM LEVEL 9.1 MG/DL (8.5-10.1); CARBON DIOXIDE LEVEL 30 MMOL/L (20-31); CHLORIDE LEVEL 101 MMOL/L (98-107); CREATININE FOR GFR 0.87 MG/DL (0.70-1.30); GLOMERULAR FILTRATION RATE > 90.0 (>56); POTASSIUM SERUM 5.7 MMOL/L (3.5-5.1); SODIUM LEVEL 140 MMOL/L (136-145)
[2024-12-11] MEDS: MECLIZINE 25 MG TABLET PO ONE (18:03)
[2024-12-11] MEDS: NS 500 ML IV ONE (18:04)
[2024-12-11] MEDS: KETOROLAC 30 MG/ML 1 ML VIAL IV ONE (18:04)
[2024-12-11 18:35] LABS: CK-MB VALUE MASS < 1.0 NG/ML (<3.6); CPK CREATINE PHOSPHOKINASE 40 U/L (46-171)
[2024-12-11 18:41] LABS: POTASSIUM SERUM 4.1 MMOL/L (3.5-5.1)
[2024-12-11 18:59] LABS: CK-MB VALUE MASS < 1.0 NG/ML (<3.6)
[2024-12-11 19:00] LABS: CPK CREATINE PHOSPHOKINASE 28 U/L (46-171)
[2024-12-11] MEDS ORDERED: ACET-683 PO (19:46)
[2024-12-11] MEDS ORDERED: NAPR220C23 PO (19:46)
[2024-12-11] MEDS ORDERED: TIZA10TA PO (19:46)
[2024-12-11] MEDS ORDERED: VENTAER INH (19:46)
[2024-12-11] MEDS ORDERED: HOME MED LIST COMPLETE! XX SCH (19:50)
[2024-12-11] MEDS: RIZATRIPTAN BENZOATE 10 MG TAB PO ONE (20:24)
[2024-12-11] MEDS: MORPHINE 4 MG/ML 1 ML VIAL IV ONE (21:22)
[2024-12-11] MEDS ORDERED: RIZA5TAB2 PO (23:27)
[2024-12-11 23:48] VITALS: BP 149/85; TEMP 97.8; O2SAT 96
== END 2024-12-11 23:56 | disposition home or self-care (01) ==
LOC: M ED 16:25
DX: R42 Dizziness and giddiness (principal); R51.9 Headache, unspecified; R06.02 Shortness of breath; J45.909 Unspecified asthma, uncomplicated; Z88.8 Allergy status to other drugs, medicaments and biological substances; Z79.1 Long term (current) use of non-steroidal anti-inflammatories (NSAID); Z79.52 Long term (current) use of systemic steroids; Z79.899 Other long term (current) drug therapy
CPT/HCPCS: 70450; 70496; 70498; 70544; 70551; 71046; 80053; 82550; 82553; 83880; 84132; 84443; 84484; 85025; 93005; 93041; 94760; 96361; 96374; 96375; 99285; J1885

== ENCOUNTER → 2025-03-27 | Outpatient (REF) | payer MEDICARE, MEDICAID ==
[~2025-03-27] MED LIST changes: +ACET-683 PO; -BACTDSTA PO; +NAPR220C23 PO; +RIZA5TAB2 PO; +SULF-8 PO; +TIZA10TA PO; +VENTAER INH
[2025-03-27 14:05] LABS: BASO # 0.0 10^3/uL (0.0-0.2); BASO % 0.5 % (0.0-1.0); EOS # 0.2 10^3/uL (0.0-0.5); EOS % 3.0 % (0.0-3.0); LYMPH # 2.5 10^3/uL (1.5-5.0); LYMPH % 36.8 % (24.0-44.0); MONO # 0.5 10^3/uL (0.0-0.8); MONO % 7.7 % (2.0-8.0); NEUTROPHILS # 3.5 10^3/uL (1.5-8.5); NEUTROPHILS % 51.8 % (36.0-66.0); PLATELET COUNT, AUTOMATED 275 10^3/uL (150-450)
[2025-03-27 14:28] LABS: INR 0.97
[2025-03-27 14:36] LABS: CALCIUM LEVEL 8.8 MG/DL (8.5-10.1); CARBON DIOXIDE LEVEL 29 MMOL/L (20-31); CHLORIDE LEVEL 101 MMOL/L (98-107); CREATININE FOR GFR 0.96 MG/DL (0.70-1.30); GLOMERULAR FILTRATION RATE > 90.0 (>56); POTASSIUM SERUM 4.6 MMOL/L (3.5-5.1); SODIUM LEVEL 140 MMOL/L (136-145)
== END ==
LOC: M LAB REF 13:53
PROVIDERS: ATTEND Physician Assistant
DX: Z01.818 Encounter for other preprocedural examination (principal)